=== PATIENT | female | born 1995 | race Caucasian/White ===

== ENCOUNTER 2020-12-15 05:17 | Emergency (ER) | payer OTHER, SELFPAY ==
--- NOTE | ~2020-12-15 | US_ITS ---
EXAMINATION: US OB <=14 wk fetus w TV DATE: 12/15/2020 INDICATION: Vaginal bleeding during first trimester TECHNIQUE: Real-time pelvic transabdominal and transvaginal ultrasound was performed. COMPARISON: None. FINDINGS: The uterus measures 8.1 x 4.9 x 6.1 cm. There is an intrauterine gestational sac. A 2.4 x 2 .3 x 1.1 cm hypoechoic area is seen adjacent to the gestational sac. A yolk sac is identified. The fe keith pole is not yet identified. The mean gestational sac diameter measures 11 mm , which correlates w ith an estimated gestational age of 5 weeks and 5 day(s) (+/-) 4 day(s). The right ovary measures 2.9 x 2.5 x 1.6 cm. The left ovary measures 2.5 x 2.5 x 2.8 cm. There is nor mal vascular flow in the ovaries. There is no free fluid in the pelvis. IMPRESSION: 1. Intrauterine gestational sac without visible pole, which could be due to early , wi th an estimated gestational age of 5 weeks and 5 day(s) (+/-) 4 day(s) and an estimated delivery date of 08/12/2021 based on mean sac diameter. 2. Subchronic hematoma. Reviewed, dictated and finalized at location A. ING PLANT OPERATOR IMPRESSION: 1. Intrauterine gestational sac without visible pole, which could be due to early , with an estimated gestational age of 5 weeks and 5 day(s) ( +/-) 4 day(s) and an estimated delivery date of 08/12/2021 based on mean sac bonnie meter. 2. Subchronic hematoma.
[2020-12-15 05:22] VITALS: BP 106/58; PULSE 60; RESP 16; TEMP 35.9; O2SAT 99
--- NOTE | 2020-12-15 05:23 | ED.FEMALEGU ---
HPI - Female Genitourinary General Chief complaint: SERVICING MANAGER <Monty Coronado MD - Last Filed: 12/20/20 15:15> Stated complaint: possible miscarriage <Monty Coronado MD - Last Filed: 12/20/20 15:15> Time Seen by Provider: 12/15/20 05:23 <Monty Coronado MD - Last Filed: 12/20/20 15:15> History of Present Illness HPI Narrative: Healthy 25 yo female presents to the ED for possible miscarriage. She reports that she is approximately 5 weeks . She has had spotting for a few days. This morning she woke up and the bleeding is heavier and associated with mild cramping. She is concerned that she may be having a miscarriage. She saw her OB and they confirmed . She has not had an ultrasound to confirm that it is intrauterine. <Monty Coronado MD - Last Filed: 12/20/20 15:15> Related Data Home medications: Home Medications Medication Instructions Recorded Confirmed No Home Medications 12/13/20 12/13/20 <Monty Coronado MD - Last Filed: 12/20/20 15:15> Allergies/Adverse reactions: Allergies Allergy/AdvReac Type Severity Reaction Status Date / Time No Known Allergies Allergy Verified 12/15/20 05:27 <Monty Coronado MD - Last Filed: 12/20/20 15:15> Review of Systems Review of Systems: All systems reviewed & are unremarkable except as noted in HPI and below <Monty Coronado MD - Last Filed: 12/20/20 15:15> Constitutional: Constitutional: Reports no additional constitutional complaints <Monty Coronado MD - Last Filed: 12/20/20 15:15> Cardiovascular: Cardiovascular: Denies chest pain <Monty Coronado MD - Last Filed: 12/20/20 15:15> Respiratory: Respiratory: Denies dyspnea <Monty Coronado MD - Last Filed: 12/20/20 15:15> Gastrointestinal: Gastrointestinal: Denies abdominal pain <Monty Coronado MD - Last Filed: 12/20/20 15:15> Genitourinary: Genitourinary: Reports as per HPI and Denies dysuria <Monty Coronado MD - Last Filed: 12/20/20 15:15> Neurologic: Denies dizziness and Denies weakness <Monty Coronado MD - Last Filed: 12/20/20 15:15> [facility] Surgical History Surgical History: Surgical History History of tonsillectomy [place] teeth removed <Monty Coronado MD - Last Filed: 12/20/20 15:15> Family History Family History: Family History Grandparent Hypertension Family history of elevated blood lipids Cerebrovascular accident Family history of coronary artery disease Diabetes mellitus Aneurysm Mother Hypertension Family history of elevated blood lipids Father Family history of pulmonary embolism Patient's father is <Monty Coronado MD - Last Filed: 12/20/20 15:15> Social History Social History: Social History Smoking status: Former smoker Tobacco type: e-cigarettes/vaping Second hand tobacco smoke exposure: No Alcohol intake: former Substance use: never <Monty Coronado MD - Last Filed: 12/20/20 15:15> Exam Const: General: healthy appearing, no acute distress and alert <Monty Coronado MD - Last Filed: 12/20/20 15:15> Orientation/consciousness: patient oriented x3 <Monty Coronado MD - Last Filed: 12/20/20 15:15> HENMT: Head: normal to inspection <Monty Coronado MD - Last Filed: 12/20/20 15:15> Neck: Neck: normal visual inspection and no lymphadenopathy <Monty Coronado MD - Last Filed: 12/20/20 15:15> Chest: Chest palpation & inspection: no tenderness <Monty Coronado MD - Last Filed: 12/20/20 15:15> Resp: Effort & Inspection: normal respiratory effort <Monty Coronado MD - Last Filed: 12/20/20 15:15> Auscultation: clear to auscultation bilaterally, no rales, no rhonchi and no wheezes <Monty Coronado MD - Last Filed: 0
[2020-12-15 05:41] LABS: Basophils Percent Auto 0.3 % (0.2-1.2); Eosinophils Absolute Auto 0.1 K/mm3 (0-0.3); Eosinophils Percent Auto 1.6 % (0-4.4); Hematocrit 35.3 % (37.0-47.0); Immature Granulocyte Absolute 0.01 K/mm3 (0.00-0.031); Immature Granulocyte Percent A 0.2 % (0-0.5); Lymphocytes Absolute Auto 2.16 K/mm3 (0.9-3.2); Lymphocytes Percent Auto 34.6 % (18.3-44.2); Mean Corpuscular Hemoglobin 32.3 pg (26-34); Mean Corpuscular Volume 95.1 fl (80-100); Mean Platelet Volume 9.2 fl (7.4-10.4); Monocytes Absolute Auto 0.5 K/mm3 (0.1-0.6); Monocytes Percent Auto 8.6 % (2.6-8.5); Neutrophils Absolute Auto 3.4 K/mm3 (1.3-6.7); Neutrophils Percent Auto 54.7 % (45.5-73.1); Platelet Count Result 228 k/mm3 (150-375); Red Blood Count 3.71 M/mm3 (4.2-5.4); Red Cell Distribution Width 11.9 % (11.5-14.5); White Blood Count 6.3 K/mm3 (4.5-10.0)
[2020-12-15 06:00] LABS: Anion Gap 6 mmol/L (8-16); Blood Urea Nitrogen 12 mg/dL (7-17); Calcium 8.9 mg/dL (8.4-10.2); Carbon Dioxide 24 mmol/L (22-30); Chloride 107 mmol/L (98-107); Estimated CRCL calculation 105 ml/min; Estimated Glomerular Filt Rate > 60; Glucose 91 mg/dL (65-105); Potassium 3.9 mmol/L (3.4-5.0); Sodium 137 mmol/L (137-145)
--- NOTE | 2020-12-15 07:46 | PC.NURSE ---
Assumed care of pt, pt mother at bedside, pt to U/S via stretcher.
[2020-12-15 08:31] VITALS: BP 112/53; PULSE 69; RESP 15; O2SAT 100
== END 2020-12-15 08:50 | disposition home or self-care (01) ==
PROVIDERS: Emergency Provider Emergency Medicine
DX: O20.0 Threatened abortion (principal); Z3A.01 Less than 8 weeks gestation of pregnancy; Z87.891 Personal history of nicotine dependence
CPT/HCPCS: 36415; 76801; 76817; 80048; 84702; 85025; 85461; 96372; 99284

== ENCOUNTER 2020-12-17 14:02 | Outpatient (CLI) | payer OTHER, SELFPAY | END 2020-12-17 14:03 | disposition home or self-care (01) | PROVIDERS: Visit Provider General Practice | DX: O20.0 Threatened abortion (principal); Z3A.00 Weeks of gestation of pregnancy not specified | CPT/HCPCS: 36415; 84702 ==

== ENCOUNTER 2020-12-22 09:58 | Outpatient (CLI) | payer OTHER, SELFPAY ==
--- NOTE | ~2020-12-22 | US_ITS ---
EXAMINATION: US OB <= 14 weeks fetus EXAM DATE: 12/22/2020 09:58 INDICATION: O36.80X0 - with inconclusive viability, not applicable or unspecified 1s t trimester. TECHNIQUE: Pelvic obstetrical transabdominal sonogram was performed by a technologist. There are mu ltiple grayscale and Doppler images available for interpretation. Comparison is made to prior examina tion from 12/15/2020. FINDINGS: Uterus measures 7.7 x 4.2 x 5.6 cm. There is intrauterine gestation sac. pole with heart rate confirmed at 117 beats per minute. The 4.5 mm crown-rump length corresponds to estimated gestational age by ultrasound of 6 weeks 1 day with an EDC by ultrasound of 08/08/2021. Yolk sac is i dentified. There is no sonographic evidence of subchorionic hemorrhage. The ovaries are morpholog ically normal and with Doppler flow confirmed. IMPRESSION: Confirmation early live intrauterine , age by ultrasound 6 weeks 1 day. Reviewed, dictated and finalized at location A.
== END 2020-12-22 09:59 | disposition home or self-care (01) ==
LOC: ANHIMG 09:58
PROVIDERS: Visit Provider Obstetrics & Gynecology
DX: O36.80X0 Pregnancy with inconclusive fetal viability, not applicable or unspecified (principal); Z3A.01 Less than 8 weeks gestation of pregnancy
CPT/HCPCS: 36415; 76801; 84702

== ENCOUNTER 2021-07-26 09:47 | Outpatient (RCR) | payer OTHER, SELFPAY ==
--- NOTE | ~2021-07-26 | US_ITS ---
EXAMINATION: US OB BPP wo non-stress DATE: 07/26/2021 10:42 INDICATION: Decreased movement during third trimester TECHNIQUE: Real-time pelvic ultrasound was performed. The interpreting radiologist was not present fo r the study. COMPARISON: None. FINDINGS: There is a single living fetus in breech presentation. The placenta is fundal. heart rate is 1 55 beats per minute (bpm). Amniotic fluid volume is subjectively normal. Biophysical profile performed by the technologist: breathing (30 sec sustained breathing in 30 minutes): 2 out of 2 movement (3 gross body movements in 30 minutes): 2 out of 2 tone (one episode of pulwroz-sdgrgrafc-bwchboh limb movement): 2 out of 2 Amniotic fluid pocket (2 cm): 2 out of 2 Total score: 8 out of 8 IMPRESSION: 1. Single living fetus in breech presentation with heart rate of 155 bpm. 2. Biophysical profile 8 out of 8. Reviewed, dictated and finalized at location A.
[2021-07-26 10:24] VITALS: BP 108/70; PULSE 78
== END 2021-10-19 14:10 | disposition home or self-care (01) ==
LOC: ANHOBOP 09:47
PROVIDERS: Visit Provider Obstetrics & Gynecology
DX: O36.8130 Decreased fetal movements, third trimester, not applicable or unspecified (principal); Z3A.37 37 weeks gestation of pregnancy
CPT/HCPCS: 59025; 76819

== ENCOUNTER 2021-08-06 18:56 | Inpatient (IN) | payer OTHER, SELFPAY ==
[2021-08-06] VITALS (37 sets, daily range): BP systolic 91–130; BP diastolic 45–98; PULSE 54–120; RESP 17–20; TEMP 36.6–37.2; O2SAT 93–100; BMI 27.2
--- NOTE | 2021-08-06 19:58 | P.PNAN_ITS ---
Anes - Initial Pre Proc Eval Procedure: Operation Date: 08/11/21 10:30 Proposed Procedures p Section - Roe Bell MD Date/Time: 08/06/21 19:58 Surgeon: Roe Bell MD Pre Op Diagnosis: Leaking Fluid Patient Data Age: 25 Gender: F Height: Weight: Last Vital Signs Pulse 86 08/06/21 19:31 BP 128/74 08/06/21 19:31 Allergies Allergy/AdvReac Type Severity Reaction Status Date / Time No Known Allergies Allergy Verified 08/02/21 15:33 Home Medications Medication Instructions Recorded Confirmed Type prenat.vits,sylvia,utn-kecc-awrnc 1 tablet PO DAILY 12/28/20 07/26/21 History ferrous sulfate 325 mg (65 mg 325 mg PO DAILY 06/13/21 07/26/21 History iron) tablet lactobacillus combination no.4 3 3,000 mmu cells PO DAILY 06/13/21 07/26/21 History billion cell capsule Patient hx anesthesia problems: none Family hx anesthesia problems: none Results Review: All pre-operative results and documents have been reviewed as part of the pre-operative evaluation. [facility] Surgical History Surgical History History of tonsillectomy [place] teeth removed Family History Family History Grandparent Hypertension Family history of elevated blood lipids Cerebrovascular accident Family history of coronary artery disease Diabetes mellitus Aneurysm Mother Hypertension Family history of elevated blood lipids Father Family history of pulmonary embolism Patient's father is Grandparent Cerebrovascular accident Hypertension Diabetes mellitus Mother Hypertension Grandparent Diabetes mellitus Cerebrovascular accident Mother Hypertension Other Family history of malignant neoplasm of breast Social History Social History Smoking status: Never smoker Tobacco type: e-cigarettes/vaping Second hand tobacco smoke exposure: No Alcohol intake: former Substance use: never Anes - Eval Final PreProcedure Day of Procedure 08/06/21 19:58 Patient weight: overweight Heart: regular rate and rhythm Lungs: clear to auscultation and normal air movement Airway: Mallampati scale Neurological: alert and oriented Last oral intake: >/= 8 hours ASA classification: II Emergent: no Anesthetic plan: proceed Anesthesia type and monitoring: regional spinal and standard monitoring Results Review: All pre-operative results and documents have been reviewed as part of the pre-operative evaluation. Informed Consent: The patient's anesthetic plan and its attendant risks and benefits were discussed with the patient/family/POA. Questions were solicited and answers provided to the satisfaction of the patient/family/POA.
[2021-08-06] MEDS: LACTATED RINGERS 1,000 ML 999 ML IV CONT ×2 (20:02→20:26)
[2021-08-06 20:08] LABS: Basophils Percent Auto 0.2 % (0.2-1.2); Eosinophils Absolute Auto 0.1 K/mm3 (0-0.3); Eosinophils Percent Auto 0.6 % (0-4.4); Hematocrit 31.1 % (37.0-47.0); Hemoglobin 10.9 g/dL (12.0-15.0); Immature Granulocyte Absolute 0.04 K/mm3 (0.00-0.031); Immature Granulocyte Percent A 0.5 % (0-0.5); Lymphocytes Absolute Auto 1.34 K/mm3 (0.9-3.2); Lymphocytes Percent Auto 16.1 % (18.3-44.2); Mean Corpuscular Hemoglobin 33.3 pg (26-34); Mean Corpuscular Volume 95.1 fl (80-100); Mean Platelet Volume 10.4 fl (7.4-10.4); Monocytes Absolute Auto 0.7 K/mm3 (0.1-0.6); Monocytes Percent Auto 7.9 % (2.6-8.5); Neutrophils Absolute Auto 6.2 K/mm3 (1.3-6.7); Neutrophils Percent Auto 74.7 % (45.5-73.1); Platelet Count Result 155 k/mm3 (150-375); Red Blood Count 3.27 M/mm3 (4.2-5.4); Red Cell Distribution Width 11.9 % (11.5-14.5); White Blood Count 8.3 K/mm3 (4.5-10.0)
--- NOTE | 2021-08-06 20:38 | PM.IMHP ---
H&P: HPI History of Present Illness Date/Time: 08/06/21 20:38 Patient is a 25yoo currently 38w4d gestation with TERESA 08/16/21. LMP 11/01/20. Patient is dated by US on 12/22/20 at 6w gestation. Fetus in known breech presentation. Patient reports leakage of fluid this evening shortly after 6:00 p.m. Clear fluid noted. Denies any vaginal bleeding or contractions. Reports good movement. Upon arrival to L&D, patient was noted to be grossly ruptured. She was previously scheduled for a section later this week. Chief Complaint: IUP at 38w4d gestation Breech presentation PROM Review of Systems Review of Systems: All systems reviewed & are unremarkable except as noted in HPI and below Constitutional: Constitutional: Reports as per HPI, Reports no additional constitutional complaints, Denies chills, Denies fever(s), Denies headache(s) and Denies night sweats Eyes: Eyes: Reports as per HPI and Reports no additional eye complaints ENT: Reports system reviewed and no additional complaints, except as documented, Reports as per HPI, Reports Normal hearing present and Denies headache(s) Cardiovascular: Cardiovascular: Reports as per HPI, Reports no additional cardiovascular complaints, Denies chest pain and Denies dyspnea Respiratory: Respiratory: Reports as per HPI, Reports no additional respiratory complaints, Denies cough and Denies dyspnea Gastrointestinal: Gastrointestinal: Reports as per HPI, Reports no additional gastrointestinal complaints, Denies abdominal pain, Denies change in bowel habits, Denies change in stool character, Denies nausea and Denies vomiting Genitourinary: Genitourinary: Reports no additional female genitourinary complaints, Reports as per HPI, Denies abnormal vaginal bleeding, Denies genital lesions, Denies hot flashes, Denies dyspareunia, Denies pelvic pain, Denies sexual dysfunction, Denies urinary incontinence, Denies vaginal discharge, Denies vaginal dryness and Denies vaginal odor Musculoskeletal: Musculoskeletal: Reports no additional musculoskeletal complaints and Reports as per HPI Integumentary/Breasts: Skin/Breast: Reports system reviewed and no additional complaints, except as docu, Reports as per HPI, Denies breast pain and Denies nipple discharge Neurologic: Reports system reviewed and no additional complaints, except as documented, Reports as per HPI, Reports Normal hearing present and Denies headache(s) Psychiatric: Psychiatric: Reports no additional psychiatric complaints, Reports as per HPI, Denies anxiety and Denies depression Endocrine: Endocrine: Reports no additional endocrine complaints and Reports as per HPI Hematologic/Lymphatic: Hematologic/Lymphatic: Reports no additional hematologic/lymphatic complaints and Reports as per HPI Allergic/Immunologic: Allergic/Immunologic: Reports no additional allergic/immunologic complaints and Reports as per HPI [facility] Surgical History Surgical History History of tonsillectomy [place] teeth removed Family History Family History Grandparent Hypertension Family history of elevated blood lipids Cerebrovascular accident Family history of coronary artery disease Diabetes mellitus Aneurysm Mother Hypertension Family history of elevated blood lipids Father Family history of pulmonary embolism Patient's father is Grandparent Cerebrovascular accident Hypertension Diabetes mellitus Mother Hypertension Grandparent Diabetes mellitus Cerebrovascular accident Mother Hypertension Other Family history of malignant neoplasm of breast Social History Social History (Reviewed 08/02/21 @ 15:34 by Riya Bowie [facility]) Smoking status: Never smoker Tobacco type: e-cigarettes/vaping Second hand tobacco smoke exposure: No Alcohol intake: former Substance use: never Meds Home Medications and Mayank
--- NOTE | 2021-08-06 20:48 | WPDHPUPDATE1 ---
History and Physical Update Update Date/Time: 08/06/21 20:48 History and Physical has been reviewed, including an updated exam of the patient. There are NO changes in the patient's condition. Risks, benefits, and alternatives have been discussed and questions answered. Patient agrees to proceed with procedure.
[2021-08-06] MEDS: ceFAZolin 2 GM/D5W 50 ML 2 GM/50 ML BAG IVPB (20:55)
--- NOTE | 2021-08-06 21:54 | W.PM.PROC2 ---
Procedure Note - Detailed Date of Procedure 08/06/21 Pre-op Diagnosis IUP at 38w4d gestation Breech presentation PROM Post-op Diagnosis same Procedure Performed Low transverse section via Pfannenstiel Surgeon Vernell Hernandez MD Senior Design Engineering Specialist Umm Mishra Anesthesia spinal Findings Live male in julio breech presentation weighing 7 lbs. 2 oz, apgars 9/9, clear amniotic fluid; normal appearing uterus and ovaries, left fallopian tube dilated approx. 3-4cm near isthmic region and a bit firm (possible broad ligament fibroid), normal appearing right fallopian tube Description of Procedure The patient was taken to the operating room, where she self-transferred to the operating room table. Spinal anesthesia was administered. The patient was placed in dorsal supine position with a leftward tilt. She was prepped and draped in the usual sterile fashion. Spinal anesthesia was tested and found to be adequate. A Pfannenstiel skin incision was made with a scalpel and carried through to underlying layer of fascia with the Bovie. The fascia was incised in the midline and the incision was extended laterally with the use of forceps and Ag scissors. The inferior aspect of the fascial incision was grasped with Valerai clamps, elevated, and the underlying rectus muscle were dissected off with Ag scissors. Attention was then turned to the superior aspect of the fascial incision, which in a similar manner, was grasped with Valeria clamps, elevated, and the underlying rectus muscles were also dissected off with Ag scissors. The rectus muscles were in the midline and the peritoneal cavity was entered sharply. This incision was extended superiorly and inferiorly with good visualization of the bladder and care was taken to avoid blood vessels. A bladder blade was inserted. The vesicouterine peritoneum was identified and incised sharply with Metzenbaum scissors. This incision was extended laterally with Metzenbaum scissors and a bladder flap was created digitally. The bladder blade was replaced. A low-transverse uterine incision was made with a scalpel. This incision was extended laterally with bandage scissors. Clear amniotic fluid was noted. The 's buttocks were grasped and guided to the level of the uterine incision. The infant's buttocks were delivered easily without difficulty with gentle fundal pressure. The infant was visualized both voiding and passing meconium. was found in julio breech presentation. The was rotated to the left and the left lower extremity was flexed and delivered. The infant was then rotated to the right and the right lower extremity was also flexed and delivered. The was wrapped with a sterile blue towel and grasped at the level of the iliac crests and guided through incision to level of scapulae. The infant was rotated to the right and the right arm was flexed and delivered. Similarly, the was rotated to the left and the left arm was also flexed and delivered. The 's head was flexed and easily delivered through incision atraumatically and without difficulty. The infant was crying spontaneously. Nose and mouth were suctioned with bulb suction. The cord was clamped and cut and the infant was handed off to awaiting nursing staff. A segment of cord was collected for cord gases. Cord blood was also collected. The placenta was then delivered manually with gentle uterine massage. Uterus was exteriorized and cleared of all clots and debris. The uterine incision was reapproximated with 0 Vicryl in a running, locked fashion. A second imbricating layer using 0 Monocryl performed. Excellent hemostasis was noted. On inspection, the uterus, ovaries, and right fallopian tube appeared to be normal. The left fallopian tube appeared to be dilated and firm with possible association with a broad ligament fibroid. The uterus was replaced into the abdominal cavity. A small area of bleeding just inferior to the right side of inc
--- NOTE | 2021-08-06 22:15 | LDADM ---
This patient, Dinah Nair, was admitted to Labor/Delivery/Recovery 120 on 08/06/21 at 18:56. Plans for labor, pain management and were discussed with patient. Patient/family oriented to hospital policies and general routines including ID bracelet, bed and alarms, visiting hours, pain management, procedures, bathroom and other care routines, personal items, smoking policy, room service/diet and guest tray routines, security routines, and visiting hours. Patient/Family are encouraged to report perceived risks to care and to ask questions if they do not understand what they are told or what they should do. See OBIX for further documentation.
[2021-08-06] MEDS: OXYTOCIN 30 UNITS/NS 500 ML 30 UNITS/500 ML BAG 125 UNITS IV CONT (22:49)
--- NOTE | 2021-08-06 22:58 | PM.OBPRVD ---
OB - Delivery Note Procedure Delivery date: 08/06/21 Procedure: Procedures Operation Date: 08/11/21 10:30 <No data on this case meets the specified criteria> events: Premature Rupture of Membrane Route of delivery: Quantitative Blood Loss (ml): 485 Anesthesia type: Spinal Disposition: PACU Complications: No immediate complications [place] Baby Date of : 08/06/21 Time of : 21:17 Weeks of gestation at delivery: 38 (38.4) gender: Male Weight (pounds): 7 Weight (ounces): 2 presentation: julio breech Placenta delivery description: Manual Removal cord vessel description: 3 Vessels score one minute: 9 score five minutes: 9
[2021-08-07] VITALS (19 sets, daily range): BP systolic 98–118; BP diastolic 52–86; PULSE 51–106; RESP 16–20; TEMP 36.6–37.2; O2SAT 96–99
[2021-08-07] MEDS: ONDANSETRON INJ 4 MG/2 ML VIAL IV PUSH (00:32)
--- NOTE | 2021-08-07 00:36 | OBPPTRN ---
Patient transferred to post room #288 via stretcher. Support person present. Oriented to unit, room, information board, rooming in, admission packet and security measures. Patient verbalizes understanding.
[2021-08-07] MEDS: DEXTROSE 5%/0.45% SOD CHL 1,000 ML 125 ML IV CONT (03:17)
[2021-08-07 05:28] LABS: Basophils Absolute Auto 0.1 K/mm3 (0.0-0.1); Basophils Percent Auto 0.3 % (0.2-1.2); Eosinophils Percent Auto 0.2 % (0-4.4); Hematocrit 31.1 % (37.0-47.0); Hemoglobin 10.6 g/dL (12.0-15.0); Immature Granulocyte Absolute 0.08 K/mm3 (0.00-0.031); Immature Granulocyte Percent A 0.5 % (0-0.5); Lymphocytes Absolute Auto 1.45 K/mm3 (0.9-3.2); Lymphocytes Percent Auto 8.8 % (18.3-44.2); Mean Corpuscular HGB Conc 34.1 g/dl (32-36); Mean Corpuscular Hemoglobin 33.7 pg (26-34); Mean Corpuscular Volume 98.7 fl (80-100); Monocytes Percent Auto 6.1 % (2.6-8.5); Neutrophils Absolute Auto 13.9 K/mm3 (1.3-6.7); Neutrophils Percent Auto 84.1 % (45.5-73.1); Platelet Count Result 132 k/mm3 (150-375); Red Blood Count 3.15 M/mm3 (4.2-5.4); Red Cell Distribution Width 11.9 % (11.5-14.5); White Blood Count 16.5 K/mm3 (4.5-10.0)
[2021-08-07] MEDS: SIMETHICONE 80 MG TAB.CHEW PO ×3 (08:53→17:01)
[2021-08-07] MEDS: DOCUSATE SODIUM 100 MG CAPSULE PO ×2 (08:53→17:01)
[2021-08-07] MEDS: MULTIVIT/MIN/PREN/FOL AC/IRON TABLET 1 TAB PO (08:53)
[2021-08-07] MEDS: KETOROLAC 30 MG/ML VIAL (*BKC) IV PUSH (08:58)
[2021-08-07] MEDS: HYDROcodone/acetaminophen (*CRX) 5-325 MG TABLET 1 TAB PO ×2 (11:40→17:02)
[2021-08-07 11:41] LABS: Rapid Plasma Reagin Non-Reactive (NonReactive)
--- NOTE | 2021-08-07 11:53 | PM.OBPNVD ---
OB - PN: Subj Subjective Date/time seen: 08/07/21 11:53 Patient comments: no complaints, pain well controlled, incisional pain, tolerating diet and other (Lochia similar to menses); no flatus present [place] baby status: doing well OB - PN: Obj Data Labs CBC & Chem 7: 08/07/21 03:31 Labs: Laboratory Results - last 24 hr 08/06/21 08/06/21 08/06/21 19:57 19:57 19:57 WBC 8.3 RBC 3.27 L Hgb 10.9 L Hct 31.1 L MCV 95.1 MCH 33.3 MCHC 35.0 RDW 11.9 Plt Count 155 MPV 10.4 Immature Gran % (Auto) 0.5 Neut % (Auto) 74.7 H Lymph % (Auto) 16.1 L [place] % (Auto) 7.9 Eos % (Auto) 0.6 Baso % (Auto) 0.2 Lymph # (Auto) 1.34 [place] # (Auto) 0.7 H Eos # (Auto) 0.1 Baso # (Auto) 0.0 Abs Immat Gran (auto) 0.04 H Absolute Neuts (auto) 6.2 Absolute Nucleated RBC 0.0 Nucleated RBC % 0.0 RPR Non-reactive Blood Type A Positive Antibody Screen Negative 08/07/21 03:31 WBC 16.5 H RBC 3.15 L Hgb 10.6 L Hct 31.1 L MCV 98.7 MCH 33.7 MCHC 34.1 RDW 11.9 Plt Count 132 L MPV 11.0 H Immature Gran % (Auto) 0.5 Neut % (Auto) 84.1 H Lymph % (Auto) 8.8 L [place] % (Auto) 6.1 Eos % (Auto) 0.2 Baso % (Auto) 0.3 Lymph # (Auto) 1.45 [place] # (Auto) 1.0 H Eos # (Auto) 0.0 Baso # (Auto) 0.1 Abs Immat Gran (auto) 0.08 H Absolute Neuts (auto) 13.9 H Absolute Nucleated RBC 0.0 Nucleated RBC % 0.0 RPR Blood Type Antibody Screen OB - PN A/P Plan day: 1 (s/p C section, doing well) Plan: routine care Comments: We agreed to hold off on circumcision due to baby being very sleepy already and hasn't nursed in about 4 hours. Time Spent With Patient Time: Total time spent is greater than 50% in coordination of care (as documented) at patient's floor/unit and/or counseling patient: Time with patient: less than 15 minutes Exam Const: General: no acute distress Resp: Auscultation: clear to auscultation bilaterally Cardio: Rate: regular rate Rhythm: regular rhythm GI: Inspection: non-distended, incision (Intact without erythema, drainage, or induration) and other (Fundus firm and nontender at umbilicus) GI Palp: Yes abdominal tenderness (appropriate ) and Yes Soft to palpation Extrem: General: no edema
--- NOTE | 2021-08-07 12:30 | PC.NURSE ---
Mother called out for assist with feeding. Infant is able to freely thrust tongue past gum ridge and flange both lips. Skin is intact on both nipples, no redness and bruising noted. Reviewed feeding cues, frequencies, duration of feedings, feeding elimination flow sheet, and signs of adequate intake. Demonstrated stimulation techniques to wake for feeding. Assisted with infant to breast. Reviewed positioning/alignment in cross cradle, holding breast in ?U? hold and guided asymmetrical latch on. Reviewed rational for each. able to latch correctly within a few attempts. Infant nursed eagerly with steady draws and occasional/frequent swallowing noted, some pausing noted. Reviewed signs of a correct latch, effective nursing and suck swallow ratio. Suggested mother stimulate while feeding to increase stimulation for milk supply, for increased intake and to assist with maintaining deep latch. would slip to shallow latch causing tenderness. Demonstrated how to adjust latch more deeply while feeding if needed. Mother reports she can feel the difference in latch with no tenderness. Nipple care reviewed of lanolin after feedings, warm compresses as needed. Instructed mother to call out for RN assistance if she is unable to latch for feeding or she has discomfort with nursing. Instructed feeding should be initiated three hours from start of last feeding or if feeding cues are noted before. Mother voiced understanding of information shared.
[2021-08-07] MEDS: TETANUS,DIPHTHERIA,AC PERTUSSIS ADULT (0.5 ML) BOOSTRIX IM (12:38)
--- NOTE | 2021-08-07 14:32 | WPDANLDPN2 ---
Anes-Prog Note L&D Date/Time: 08/07/21 14:32 Comfortable throughout: section Neuraxial method: spinal Epidural/Spinal procedure site: clean & non-tender Neuro status: Neuro function grossly intact. Cardiovascular status: normal Respiratory status: normal Airway patency: baseline Mental status: baseline Post-Op hydration status: normal Vital Signs: Last Vital Signs Temp 36.6 C 08/07/21 11:59 Pulse 81 08/07/21 12:00 Resp 16 08/07/21 12:00 BP 108/64 08/07/21 11:59 Pulse Ox 99 08/07/21 12:00 Pain score (VAS): 3 I/O: Intake & Output 08/06/21 08/07/21 08/07/21 23:59 07:59 15:59 Intake Total 2500 500 800 Output Total 221 527 1967 Balance 5260 -[id number] Post-procedural complaints: none Patient feedback: Patient satisfied with anesthetic care.
--- NOTE | 2021-08-07 14:33 | WPDANLDNPN2 ---
Anes-Prog Note L&D-Neuraxial Date/Time: 08/07/21 14:33 Neuraxial medications: intrathecal PF morphine Opiod-related complaints: none Patient feedback: Patient satisfied with post-operative pain management.
[2021-08-07] MEDS: IBUPROFEN 600 MG TABLET PO (17:01)
[2021-08-07] MEDS: HYDROcodone/acetaminophen (*CRX) 10-325 MG TABLET 1 TAB PO (22:35)
[2021-08-08] MEDS: HYDROcodone/acetaminophen (*CRX) 10-325 MG TABLET 1 TAB PO ×5 (04:20→21:33)
[2021-08-08] MEDS: IBUPROFEN 600 MG TABLET PO ×3 (04:20→21:32)
[2021-08-08 08:15] VITALS: BP 110/57; PULSE 80; RESP 18; TEMP 37.2; O2SAT 99
[2021-08-08] MEDS: MULTIVIT/MIN/PREN/FOL AC/IRON TABLET 1 TAB PO (08:58)
[2021-08-08] MEDS: DOCUSATE SODIUM 100 MG CAPSULE PO ×2 (08:58→17:34)
--- NOTE | 2021-08-08 11:00 | PC.NURSE ---
Mother called out for assist with feeding, reporting has been sleepy after circumcision. Assured parents this is normal and should resolve within a few feedings. Mother reports tenderness to nipples with feeding. Skin is intact on both nipples, with redness bilaterally. Nipple care reviewed of lanolin after feedings, warm compresses as needed. Discussed a deeper latch. Reviewed infant feeding cues, frequencies, duration of feedings, feeding elimination flow sheet, and signs of adequate intake. Demonstrated stimulation techniques to wake for feeding. Assisted with to breast. Reviewed positioning/alignment in football cradle, holding breast in ?C? hold and guided asymmetrical latch on. Reviewed rational for each. able to latch correctly within a few attempts. Infant nursed eagerly with steady draws and occasional/frequent swallowing noted, some pausing noted. Reviewed signs of a correct latch, effective nursing and suck swallow ratio. Suggested mother stimulate while feeding to increase stimulation for milk supply, for increased intake and to assist with maintaining deep latch. Infant would slip to shallow latch causing tenderness. Demonstrated how to adjust latch more deeply while feeding if needed. Mother reports she can feel the difference in latch with no tenderness. Stressed the importance of adjusting latch and holding breast during the entire feeding. Instructed mother to call out for RN assistance if she is unable to latch for feeding or she has discomfort with nursing. Instructed feeding should be initiated three hours from start of last feeding or if feeding cues are noted before. Mother voiced understanding of information shared.
--- NOTE | 2021-08-08 12:46 | PM.OBPNVD ---
OB - PN: Subj Subjective Date/time seen: 08/08/21 0820 She states adequate pain control. Decrease lochia. She has ambulated without problems. Tolerating regular food. No flatus. No leg pain. Nursing well. OB - PN: Obj Data Labs CBC & Chem 7: 08/07/21 03:31 OB - PN A/P Assessment and Plan (1) delivery delivered: Code(s): O82 - Encounter for delivery without indication Status: Acute Assessment and Plan: POD2 doing well Continue routine post op care. Time Spent With Patient Time: Total time spent is greater than 50% in coordination of care (as documented) at patient's floor/unit and/or counseling patient: Exam Const: General: comfortable and no acute distress Resp: Effort & Inspection: normal respiratory effort GI: Other: fundus below umbilicus appropriate tenderness incision clean dry intact Skin: General skin exam: normal color Extrem: General: normal to inspection Other: nontender Psych: Mental Status: mental status grossly normal Affect: normal affect
[2021-08-08] MEDS: SIMETHICONE 80 MG TAB.CHEW PO (14:27)
[2021-08-08 18:30] VITALS: BP 106/61; PULSE 77; RESP 18; TEMP 37.1
[2021-08-09] MEDS: HYDROcodone/acetaminophen (*CRX) 10-325 MG TABLET 1 TAB PO (03:23)
[2021-08-09] MEDS: IBUPROFEN 600 MG TABLET PO ×2 (03:24→09:03)
[2021-08-09 08:00] VITALS: BP 113/71; PULSE 73; RESP 16; TEMP 36.9; O2SAT 99
[2021-08-09] MEDS: DOCUSATE SODIUM 100 MG CAPSULE PO (09:02)
[2021-08-09] MEDS: MULTIVIT/MIN/PREN/FOL AC/IRON TABLET 1 TAB PO (09:02)
[2021-08-09] MEDS: HYDROcodone/acetaminophen (*CRX) 5-325 MG TABLET 1 TAB PO (09:05)
--- NOTE | 2021-08-09 09:08 | PM.OBDSVD ---
DS: Admitting Diagnosis Discharge Date August 09, 2021. Admitting Diagnosis Premature rupture of membranes, persistent breech presentation. DS: Discharge Diagnosis Discharge Diagnosis (1) Breech presentation of fetus: Code(s): O32.1XX0 - Maternal care for breech presentation, not applicable or unspecified Status: Acute (2) PROM (premature rupture of membranes): Code(s): O42.90 - Premature rupture of membranes, unspecified as to length of time between rupture and onset of labor, unspecified weeks of gestation Status: Acute (3) delivery delivered: Code(s): O82 - Encounter for delivery without indication Status: Acute OB - DS: Summary Hospital Course Hospital Course: Patient admitted on August 06 for premature rupture of membranes. She was known breech position. She was confirmed ruptured of membranes. And she underwent an uncomplicated primary section. Postop day 1. She was doing well started ambulating had adequate pain control and lochia was decreased. On postop day 2 she had improved ambulation. She did have some flatus. Was tolerating regular diet. On postop day 3 patient was doing well ambulating well adequate pain control tolerating regular diet had some flatus and was discharged home. OB Procedures : Ultrasound OB Procedures Intrapartum: ( Low-transverse) OB Procedures: : None Peripartum Data Infant Delivery Method: Section Procedures: Procedures Operation Date: 08/06/21 20:50 Actual Procedure Side Surgeon p Section Vernell Hernandez MD complications: none Status at Discharge Functional status at discharge: independent ambulation Time Spent with Patient Time attestation: Total time spent providing and/or coordinating discharge services: Exam Const: General: cooperative Orientation/consciousness: oriented to person, oriented to place and oriented to time HENMT: General nose exam: Normal external nose present Eyes: General: appearance normal, both eyes and all related structures Resp: Effort & Inspection: normal respiratory effort GI: Inspection: normal to inspection : Other: uterus fundus firm -4 umbilicus appropriate tenderness. Incision intact clean and dry Skin: General skin exam: normal color Neuro: General: oriented to person, oriented to place and oriented to time Extrem: General: normal to inspection and no calf tenderness Psych: Appearance: grossly normal Mental Status: mental status grossly normal Discharge Plan Discharge Attending physician on discharge: Roe Bell Consulting providers: Fatou Carrasco Discharging Clinician: Roe Bell Anticipated Discharge Date/Time: 08/09/21 09:04 Patient Disposition: Home, Self-Care Activity: may shower, may drive after 2 weeks and pelvic rest Diet: regular Wound Care Instructions: incision open to air Discharge Instructions: Pelvic rest for 4-6 weeks. May take over the counter Ibuprofen or Tylenol for pain. Call if saturating more than a pad an hour, leg redness, pain and swelling, temperature>100.4.Drainage from incision. Redness at incision. No strenuous activity. Patient Instructions: Antibiotic Form Stand Alone Forms: General Discharge Information Follow-up/Referrals: Roe Bell MD [Physician] - 2 Weeks (Call for appointment) Discharge Medications: New hydrocodone-acetaminophen 5-325 mg Tablet 1 tablet PO Q3H PRN (Reason: Moderate Pain (4-6)) Qty: 25 RF: 0 Continued prenat.vits,sylvia,[id number] Tablet 1 tablet PO DAILY RF: 0 ferrous sulfate 325 mg (65 mg iron) tablet 325 mg PO DAILY RF: 0 Probiotic 3 billion cell capsule 3,000 mmu cells PO DAILY RF: 0 Date of admission: 08/06/21 18:56 Primary Care Provider: PHYSICIAN,PAEDIATRIC PHYSIOTHERAPIST Admitting Provider: Roe Bell Attending physician on admission: Roe Bell Co
--- NOTE | 2021-08-09 09:12 | PM.OBPNVD ---
OB - PN: Subj Subjective Date/time seen: 08/09/21 09:12 she states she is doing well. Has adequate pain control. Has ambulated. Has had some flatus. Tolerating regular diet. Nursing well. OB - PN: Obj Data Labs CBC & Chem 7: 08/07/21 03:31 OB - PN A/P Assessment and Plan (1) delivery delivered: Code(s): O82 - Encounter for delivery without indication Status: Acute Assessment and Plan: Postop day 3. Patient doing well. Will discharge home. Discharge precautions discussed. Time Spent With Patient Time: Total time spent is greater than 50% in coordination of care (as documented) at patient's floor/unit and/or counseling patient: Exam Const: General: comfortable and no acute distress Resp: Effort & Inspection: normal respiratory effort GI: Other: Incision clean dry and intact no drainage fundus minus formed alike is Extrem: General: normal to inspection Other: nontender no calf tenderness no swelling. Psych: Mental Status: mental status grossly normal Affect: normal affect
--- NOTE | 2021-08-09 11:12 | PC.NURSE ---
Patient viewed the discharge video Mother & Baby Care, The First Two Weeks . Patient was given the opportunity and encouraged to ask questions. Patient verbalized understanding of information shared and has been given the mother/baby guide for home reference.
[2021-08-10 09:52] VITALS: BP 115/72; PULSE 83; RESP 20; TEMP 37.2; O2SAT 100
== END 2021-08-09 11:58 | disposition home or self-care (01) | DRG 788 ==
LOC: ANHLDR 20:15 → ANHOB2 08-07 00:57
PROVIDERS: Admitting Provider Student in an Organized Health Care Education/Training Program; Visit Provider Obstetrics & Gynecology
DX: O32.1XX0 Maternal care for breech presentation, not applicable or unspecified (principal); O42.92 Full-term premature rupture of membranes, unspecified as to length of time between rupture and onset of labor; Z3A.38 38 weeks gestation of pregnancy; Z37.0 Single live birth; N83.9 Noninflammatory disorder of ovary, fallopian tube and broad ligament, unspecified
CPT/HCPCS: 36415; 84112; 85025; 86592; 86850; 86900; 86901; 90715; A9270; J0690; J1885; J2274; J2405; J2590; J7120

== ENCOUNTER 2021-08-14 10:00 | Outpatient (RCR) | payer OTHER, SELFPAY ==
--- NOTE | 2021-08-14 10:53 | PC.NURSE ---
IN 1000 OUT 1100 HISTORY: Pt. delivered at [facility] at 38 weeks. had no complications after delivery. Mother had no complications after delivery. Mother and discharged successfully Infant is now 09 days old. appears to be well cared for. last seen/will be seen by ICP at 1 week. Mother reports: Currently at 6 wets per day and 2-3 yellow seedy stools per day. weight:7#2 Discharge weight: 6#8 Last Weight: 6#14 Once discharged infant began having difficulties with latching. Mother had pain with entire feeding increasing in discomfort and could not put infant to breast. She began pumping and bottle feeding. is feeding 2 oz mostly EBM every 2-3 hours during the day and every 3-4 at night. Mother is pumping after feeding infant without issue. Mother wishes: To return infant to breast without discomfort. OBSERVATION: Pre feeding weight: Post feeding weight: 3360 7.6 Tongue is able to move tongue freely past gum ridge, both lips flange easily. Mother has everted nipples healed cracks noted, slight redness and scabbing on both nipples. Mother is engorged, advised to self express to soften before attempting latch. Demonstrated self expression. Discussed if breasts are firm is unable to draw areola in deeply for correct latch and is only nursing on nipple. Observed mother putting to breast in cradle positioning with infant latching to nipple only. Mother is grimacing in discomfort. Reviewed positioning/alignment in cross cradle, holding breast in U hold and guided asymmetrical latch on. Discussed rational for each. was able to latch correctly within a few attempts. Infant nursed eagerly, with steady draws and frequent swallowing noted. Reviewed signs of a correct latch, effective nursing and suck swallow ratio. would pull back while feeding, slipping to shallow latch causing mother discomfort. Demonstrated how to adjust latch more deeply while feeding. Suggested mother give slight resistance and bring infant to breast when he pulls back. Advised to stimulate while feeding to keep nursing effectively/consistent and to assist with maintaining latch. Mother was able to independently switch infant to other breast without assist. Mother will put to breast on demand or by three hours from last feeding. PLAN: Mother will follow above feeding plan and assist to maintain deep latch. Mother will call with further questions or concerns.
== END 2021-10-19 12:38 | disposition home or self-care (01) ==
LOC: ANHOBOP 10:00
PROVIDERS: Visit Provider Pediatrics
DX: Z39.1 Encounter for care and examination of lactating mother (principal)
CPT/HCPCS: 99212; G0463

== ENCOUNTER 2021-08-15 15:02 | Outpatient (RCR) | payer OTHER, SELFPAY | END 2021-11-13 23:59 | disposition home or self-care (01) | LOC: ANHOBOP 15:02 | PROVIDERS: Visit Provider Pediatrics | DX: Z39.1 Encounter for care and examination of lactating mother (principal) | CPT/HCPCS: 99199 ==

== ENCOUNTER 2023-05-07 15:01 | Emergency (ER) | payer OTHER, SELFPAY ==
--- NOTE | 2023-05-07 15:20 | ED.HEATRA ---
HPI - Head Injury General Chief complaint: Head Injury Stated complaint: hit head yesterday-concussion symptoms Time Seen by Provider: 05/07/23 15:11 History of Present Illness HPI Narrative: Pt opened door yesterday and struck self in forehead. Pt did not lose consciousness. Pt says she has a little light sensitivity and a little pressure across her forehead. 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 Pt denies neuro deficits. Related Data Home Medications Medication Instructions Recorded Confirmed prenat.vits,sylvia,[id number] 1 tablet PO DAILY 12/28/20 07/10/22 lactobacillus combination no.4 3 3,000 mmu cells PO DAILY 06/13/21 07/10/22 billion cell capsule (Probiotic) copper 380 square mm intrauterine 1 device intrauterine ONCE 10/10/21 07/10/22 device (ParaGard T 380A) fenugreek seed extract 500 mg mg PO 06/26/22 07/10/22 capsule Allergies Allergy/AdvReac Type Severity Reaction Status Date / Time No Known Allergies Allergy Verified 05/07/23 15:02 Review of Systems Review of Systems: All systems reviewed & are unremarkable except as noted in HPI and below PMFSH Surgical History Surgical History History of tonsillectomy [place] teeth removed Family History Family History Grandparent Hypertension Family history of elevated blood lipids Cerebrovascular accident Family history of coronary artery disease Diabetes mellitus Aneurysm Mother Hypertension Family history of elevated blood lipids Father Family history of pulmonary embolism Patient's father is Grandparent Cerebrovascular accident Hypertension Diabetes mellitus Mother Hypertension Grandparent Diabetes mellitus Cerebrovascular accident Mother Hypertension Other Family history of malignant neoplasm of breast Social History Social History Smoking status: Never smoker Tobacco type: e-cigarettes/vaping Second hand tobacco smoke exposure: No Alcohol intake: former Substance use: never Spiritual care concerns: No Exam Const: General: healthy appearing Nutritional Appearance: well nourished Orientation/consciousness: patient oriented x3 Limitations: no limitations HENMT: Head: contusion left frontal Face and sinus: normal facial exam Neck: Neck: normal visual inspection Resp: Effort & Inspection: normal respiratory effort Auscultation: clear to auscultation bilaterally Cardio: Rate: regular rate Rhythm: regular rhythm GI: GI Palp: Yes Soft to palpation Auscultation: normal bowel sounds Skin: General skin exam: normal color Rashes: no rashes Wounds: no wounds Neuro: General: patient oriented x3, moves all extremities and no focal motor deficits Cranial nerves: Yes CN's II-XII intact bilaterally and Yes Nystagmus not present Speech: normal speech Extrem: General: normal to inspection and no clubbing, cyanosis or edema Psych: Mental Status: mental status grossly normal Affect: normal affect Attitude: cooperative MDM - Head Injury MDM Narrative Medical decision making narrative: pt has only mild symptoms of concussion discussed CT head and pt would rather not have the test. Discharge Plan Discharge Clinical Impression: Head injury Patient Disposition: Home, Self-Care Condition: Stable Instructions: Antibiotic Form, Concussion (ED) Prescriptions: No Action prenat.vits,sylvia,ibr-ildy-demtv Tablet 1 tablet PO DAILY Probiotic 3 billion cell capsule 3,000 mmu cells PO DAILY Rx Instructions: administer with a meal ParaGard T 380A 380 square mm intrauterine device 1 device intrauterine ONCE Rx Instructions: as a single dose fenugreek seed extract 500 mg capsule PO Follow-up/Refer
== END 2023-05-07 15:55 | disposition home or self-care (01) ==
LOC: ANHED 15:42
PROVIDERS: Emergency Provider Emergency Medicine
DX: S09.90XA Unspecified injury of head, initial encounter (principal); W22.8XXA Striking against or struck by other objects, initial encounter
CPT/HCPCS: 99282

== ENCOUNTER 2023-07-16 11:59 | Outpatient (CLI) | payer OTHER, SELFPAY ==
[2023-07-21 05:02] LABS: Prolactin 4.1 ng/mL (***)
== END 2023-07-16 12:00 | disposition home or self-care (01) ==
LOC: ANHLAB 12:01
PROVIDERS: Visit Provider Obstetrics & Gynecology
DX: N64.3 Galactorrhea not associated with childbirth (principal)
CPT/HCPCS: 36415; 84146

== ENCOUNTER 2024-02-12 08:27 | Outpatient (CLI) | payer OTHER, SELFPAY ==
[2024-02-12 10:23] LABS: Beta HCG Quantitative 21.21 mIU/ML
== END 2024-02-12 08:28 | disposition home or self-care (01) ==
LOC: ANHLAB 08:29
PROVIDERS: Visit Provider Obstetrics & Gynecology
DX: O26.851 Spotting complicating pregnancy, first trimester (principal)
CPT/HCPCS: 36415; 84702

== ENCOUNTER 2024-02-14 10:09 | Outpatient (CLI) | payer OTHER, SELFPAY ==
[2024-02-14 10:55] LABS: Beta HCG Quantitative 19.68 mIU/ML
== END 2024-02-14 10:10 | disposition home or self-care (01) ==
LOC: ANHLAB 10:10
PROVIDERS: Visit Provider Obstetrics & Gynecology
DX: O26.851 Spotting complicating pregnancy, first trimester (principal); Z3A.00 Weeks of gestation of pregnancy not specified
CPT/HCPCS: 36415; 84702

== ENCOUNTER 2024-02-17 09:15 | Outpatient (CLI) | payer OTHER, SELFPAY ==
[2024-02-17 10:13] LABS: Beta HCG Quantitative 4.81 mIU/ML
== END 2024-02-17 09:16 | disposition home or self-care (01) ==
PROVIDERS: Visit Provider Nurse Practitioner Obstetrics & Gynecology
DX: O20.9 Hemorrhage in early pregnancy, unspecified (principal); Z3A.00 Weeks of gestation of pregnancy not specified
CPT/HCPCS: 36415; 84702

== ENCOUNTER 2024-03-04 10:28 | Outpatient (CLI) | payer OTHER, SELFPAY ==
[2024-03-04 11:33] LABS: Beta HCG Quantitative < 2.39 mIU/ML
== END 2024-03-04 10:29 | disposition home or self-care (01) ==
PROVIDERS: Visit Provider Obstetrics & Gynecology
DX: O03.9 Complete or unspecified spontaneous abortion without complication (principal)
CPT/HCPCS: 36415; 84702

== ENCOUNTER 2024-06-15 10:17 | Outpatient (CLI) | payer OTHER, SELFPAY ==
[2024-06-15 11:12] LABS: Beta HCG Quantitative 858.87 mIU/ML
[2024-06-16 02:43] LABS: Progesterone 32.7 ng/mL
== END 2024-06-15 10:18 | disposition home or self-care (01) ==
PROVIDERS: PCP Nurse Practitioner; Visit Provider Obstetrics & Gynecology
DX: O09.299 Supervision of pregnancy with other poor reproductive or obstetric history, unspecified trimester (principal); Z3A.00 Weeks of gestation of pregnancy not specified
CPT/HCPCS: 36415; 84144; 84702

== ENCOUNTER 2024-06-17 15:13 | Outpatient (CLI) | payer OTHER, SELFPAY | END 2024-06-17 15:14 | disposition home or self-care (01) | LOC: ANHLAB 15:16 | PROVIDERS: PCP Nurse Practitioner; Visit Provider Obstetrics & Gynecology | DX: O09.299 Supervision of pregnancy with other poor reproductive or obstetric history, unspecified trimester (principal); Z3A.00 Weeks of gestation of pregnancy not specified | CPT/HCPCS: 36415; 84702 ==

== ENCOUNTER 2024-06-24 13:54 | Outpatient (CLI) | payer OTHER, SELFPAY ==
--- NOTE | ~2024-06-24 | US_ITS ---
EXAMINATION: US OB <=14 wk fetus w TV DATE: 06/24/2024 15:35 INDICATION: 2 days of spotting during first trimester . TECHNIQUE: Real-time pelvic ultrasound utilizing transabdominal probe was performed. The vijay owens radiologist was not present for the study. COMPARISON: None. FINDINGS: The uterus measures 9.2 x 4.3 x 5.1 cm. There is an intrauterine gestational sac with yolk sac but n o definitive pole likely due to to early stage of . The mean sac diameter measures 1.3 cm, which correlates with an estimated gestational age of 6 weeks and 1 days. There is a 1.8 x 1.3 x 0.7 cm hypoechoic likely subchorionic hematoma extending caudally from the gestational sac. The right ovary measures 2.9 x 1.7 x 1.7 cm. The left ovary measures 3.9 x 3.4 x 4.0 cm. There is a 2 .8 x 2.5 x 2.1 cm anechoic likely corpus luteum cyst in the left ovary with peripheral increased vasc ular flow on color Doppler. Lesser flow sulci identified on color Doppler at the right ovary. There i s a minimal amount of free fluid in the pelvis. IMPRESSION: 1. Single intrauterine gestational sac with yolk sac but no discernible pole likely due to rosario y stage of . 2. Gestational age by ultrasound based upon 1.3 cm mean sac diameter of 6 weeks 1 day(s) +/- 4 day(s ) with ultrasound estimated date of delivery (TERESA) of 02/16/2025. 3. Small subchorionic hematoma. Reviewed, dictated and finalized at location B. IMPRESSION: 1. Single intrauterine gestational sac with yolk sac but no discernible p ole likely due to early stage of . 2. Gestational age by ultrasound based upon 1.3 cm mean sac diameter of 6 week s 1 day(s) +/- 4 day(s) with ultrasound estimated date of delivery (TERESA) of 02/04. 3. Small subchorionic hematoma.
== END 2024-06-24 13:55 | disposition home or self-care (01) ==
LOC: ANHIMG 13:58
PROVIDERS: PCP Nurse Practitioner; Visit Provider Obstetrics & Gynecology
DX: O26.851 Spotting complicating pregnancy, first trimester (principal); Z3A.01 Less than 8 weeks gestation of pregnancy
CPT/HCPCS: 36415; 76801; 76817; 84702

== ENCOUNTER 2024-07-01 11:54 | Outpatient (CLI) | payer OTHER, SELFPAY ==
--- NOTE | ~2024-07-01 | US_ITS ---
EXAMINATION: US OB <=14 wk fetus w TV DATE: 07/01/2024 13:09 INDICATION: First trimester with inconclusive viability TECHNIQUE: Real-time pelvic ultrasound utilizing both a transvaginal and transabdominal probe was pe rformed. The interpreting radiologist was not present for the study. COMPARISON: None. FINDINGS: The uterus measures 9.7 x 6.3 x 5.0 cm. There is an intrauterine gestational sac. A yolk sac and fet al pole are identified. The crown rump length measures 7 mm, which correlates with an estimated gesta tional age of 6 weeks and 4 days. heart motion is identified measuring 122 beats per minute (bp m) by M-mode Doppler.13 x 12 x 6 mm anechoic subchorionic hematoma along the cephalad right anterior margin of the gestational sac. Normal cervical length of 3.6 cm. The right ovary measures 2.4 x 2.2 x 1.5 cm. The left ovary measures 4.1 x 4.0 x 3.3 cm. Vascular kiko w identified in both ovaries on color Doppler. There is increased vascular flow at the periphery of a 3.0 x 2.2 x 2.1 cm corpus luteum cyst in the left ovary. There is minimal amount of anechoic free fl uid in the cul-de-sac. IMPRESSION: 1. Single living fetus with heart rate of 122 bpm. 2. Gestational age by ultrasound based on crown-rump length of 7 mm of 6 weeks 4 day(s) +/- 4 day(s) with ultrasound estimated date of delivery (TERESA) of . 3. Small subchorionic hematoma. Reviewed, dictated and finalized at location A.
== END 2024-07-01 11:55 | disposition home or self-care (01) ==
PROVIDERS: PCP Nurse Practitioner; Visit Provider Obstetrics & Gynecology
DX: O46.90 Antepartum hemorrhage, unspecified, unspecified trimester (principal); O36.80X0 Pregnancy with inconclusive fetal viability, not applicable or unspecified; Z3A.00 Weeks of gestation of pregnancy not specified
CPT/HCPCS: 76801; 76817

== ENCOUNTER 2024-07-09 16:17 | Emergency (ER) | payer OTHER, SELFPAY ==
[2024-07-09 16:25] VITALS: BP 108/67; PULSE 60; RESP 18; TEMP 36.7; O2SAT 97
--- NOTE | 2024-07-09 16:56 | PC.NURSE ---
Pt approached nurses station saying I'm gonna go. GCS 15. Ambulatory with a steady gait.
== END 2024-07-09 17:01 | disposition left against medical advice (07) ==
LOC: ANHED 17:00
PROVIDERS: PCP Nurse Practitioner
DX: N93.9 Abnormal uterine and vaginal bleeding, unspecified (principal)
CPT/HCPCS: 99199

== ENCOUNTER 2024-08-19 10:27 | Outpatient (CLI) | payer OTHER, SELFPAY | END 2024-08-19 10:28 | disposition home or self-care (01) | LOC: ANHLAB 10:29 | PROVIDERS: PCP Nurse Practitioner; Visit Provider Obstetrics & Gynecology | DX: Z34.90 Encounter for supervision of normal pregnancy, unspecified, unspecified trimester (principal) | CPT/HCPCS: 36415; 86850; 86900; 86901; 87086 ==

== ENCOUNTER 2024-11-23 15:45 | Outpatient (CLI) | payer OTHER, SELFPAY ==
[2024-11-23 16:56] LABS: Basophils Percent Auto 0.3 % (0.2-1.2); Eosinophils Absolute Auto 0.2 K/mm3 (0-0.3); Hematocrit 34.2 % (37.0-47.0); Hemoglobin 11.6 g/dL (12.0-15.0); Immature Granulocyte Absolute 0.11 K/mm3 (0.00-0.031); Lymphocytes Absolute Auto 1.45 K/mm3 (0.9-3.2); Lymphocytes Percent Auto 13.7 % (18.3-44.2); Mean Corpuscular HGB Conc 33.9 g/dl (32-36); Mean Corpuscular Volume 97.2 fl (80-100); Mean Platelet Volume 9.6 fl (7.4-10.4); Monocytes Absolute Auto 0.6 K/mm3 (0.1-0.6); Monocytes Percent Auto 5.3 % (2.6-8.5); Neutrophils Absolute Auto 8.2 K/mm3 (1.3-6.7); Neutrophils Percent Auto 77.7 % (45.5-73.1); Platelet Count Result 202 k/mm3 (150-375); Red Blood Count 3.52 M/mm3 (4.2-5.4); Red Cell Distribution Width 12.6 % (11.5-14.5); White Blood Count 10.6 K/mm3 (4.5-10.0)
[2024-11-23 17:14] LABS: Glucose 1 Hour PP 50gm Dose 121 mg/dL
--- OUTSIDE RECORDS SUMMARY | 2024-11-23 18:13 | XMS_ITS | Referral Summary ---
Author Organization [facility] [address] Address [address] [place] [id number] Care Team Providers Care Seater Grinder Name Role Phone Unknown, Notinfile Primary Care Provider Unavail able Allergies No known active allergies Medications No known medications Active Problems No known active problems Social History Tobacco Use Types Packs/Day Years Used Date Smoking Tobacco: Never Assessed Comments Unknown Sex and Gender Information Value Date Recorded Sex Assigned at Not on file Legal Sex Female 11:09 AM CDT Gender Identity Not on file Sexual Orientation Not on file Last Filed Vital Signs Vital Sign Reading Time Taken Comments Blood Pressure 113/73 05/09/2023 2:57 PM CDT Pulse 103 05/09/2023 2:57 PM CDT Temperature 36.8 C (98.2 F) 05/09/2023 2:57 PM CDT Respiratory Rate 18 05/09/2023 2:57 PM CDT Oxygen Saturation 98% 05/09/2023 2:57 PM CDT Inhaled Oxygen Concentration - - Weight 57 kg (125 lb 9.6 oz) 05/09/2023 2:57 PM CDT Height 162.6 cm (5' 4 ) 05/09/2023 2:57 PM CDT Body Mass Index 21.56 05/09/2023 2:57 PM CDT Plan of Treatment Not on file Insurance [facility] H[facility]PPO Address: [address] [address] [place] [phone] [facility] [employer] [employer]PPO Address: [place] [phone] Care Teams Seater Grinder Relationship Specialty Start Date End Date Unknown, Notinfile PCP - General 05/09/23
--- OUTSIDE RECORDS SUMMARY | 2024-11-23 18:13 | XMS_ITS | Clinical Summary ---
Author Organization [facility] Address [address] [place] [address] Phone Care Team Providers Care Vehicle Service Attendant Name Role Phone Zeyad Huertas MD Primary Care Provider [phone] Encounters Date Type Department Care Team Description 11/09/2024 3:45 PM VENEER JOINTER OFFBEARER - 11/09/2024 11:59 PM VENEER JOINTER OFFBEARER Hospital Encounter [facility] [address] [place] [phone] Kourtney Salomon MD Discharge Disposition: Home or Self Care 11/04/2024 External Device Data STL ABSTRACTION Provider, Abstract 10/29/2024 External Device Data STL ABSTRACTION Provider, Abstract 10/19/2024 1:52 PM VENEER JOINTER OFFBEARER - 10/19/2024 11:59 PM VENEER JOINTER OFFBEARER Hospital Encounter [facility] [address] [place] [phone] Kourtney Salomon MD Discharge Disposition: Home or Self Care 09/29/2024 External Device Data STL ABSTRACTION Provider, Abstract 09/28/2024 12:43 PM VENEER JOINTER OFFBEARER - 09/28/2024 11:59 PM VENEER JOINTER OFFBEARER Hospital Encounter [facility] [address] [place] [phone] Lauren Guerrero MD Discharge Disposition: Home or Self Care from Last 3 Months Social History Tobacco Use Types Packs/Day Years Used Date Smoking Tobacco: Never Assessed Comments Unknown Sex and Gender Information Value Date Recorded Sex Assigned at Not on file Legal Sex Female 12:52 PM CDT Gender Identity Not on file Sexual Orientation Not on file Plan of Treatment Health Maintenance Due Date Last Done Comments CERVICAL CANCER SCREENING 2016 INFLUENZA VACCINE (#1) 2024 COVID-19 Vaccine (3 - 2023-2 5 season) 2024 12/24/2021, 11/25/2021 DTAP/TDAP/TD VACCINES (3 - T d or Tdap) 08/07/2031 08/07/2021, 03/07/2010, 05/20/2001, Additional history exists HEPATITIS B VACCINES Completed 02/26/1996, 1995, 1995 HPV VACCINES Completed 09/08/2010, 11/2009, 03/07/2010 Procedures Procedure Name Priority Date/Time Associated Diagnosis Comments US OB FOLLOW UP PER FETUS Routine 11/09/2024 4:22 PM VENEER JOINTER OFFBEARER screening for malformation using ultrasonics Cervical shortening affecting in second trimester US OB LTD 1 OR MORE FETUS + TV Routine 10/19/2024 2:14 PM VENEER JOINTER OFFBEARER screening for malformation using ultrasonics Cervical shortening affecting in second trimester US OB 14+ WKS SINGLE GEST Routine 09/28/2024 1:58 PM VENEER JOINTER OFFBEARER screening for malformation using ultrasonics from Last 3 Months Results * US OB FOLLOW UP PER FETUS (11/09/2024 4:22 PM VENEER JOINTER OFFBEARER) Anatomical Region Laterality Modality Pelvis Ultrasound 11/09/2024 3:49 PM VENEER JOINTER OFFBEARER Narrative 11/11/2024 8:00 AM VENEER JOINTER OFFBEARER STL FOLLOW UP ----- Pat. Name: TUSHAR RODRIGUEZ Study Date: 11/09/2024 3:49pm Pat. NO: [id number] Referring MD: LAUREN GUERRERO MD Site: [place] Licensed Loan Officer: Trena Rose RDMS : 1995 Age: 29 ----- INDICATION ----- Screening Follow-Up CODING ----- Diagnoses Z3A.25: Weeks of gestation Z36.2: Encounter for other screening follow-up Procedures 62481: Ultrasound, uterus, real time with image documentation, follow up, transabdominal approach per fetus HISTORY ----- OB History 1 METHOD ----- Transabdominal ultrasound examination ----- Walter . Number of fetuses: 1 DATING ----- Cycle: regular cycle GA by prior assessment 25 w + 6 d TERESA by prior assessment: 02/16/2025 Ultrasound examination on: 11/09/2024 GA by U/S based upon: AC, BPD, EFW, Femur, HC GA by U/S 25 w + 5 d TERESA by U/S: 02/17/2025 Method of dating: Restore dating from previous exam Assigned: based on stated TERESA, selected on 09/28/2024 Assigned GA 25 w + 6 d Assigned TERESA: 02/16/2025 BIOMETRY ----- BPD 65.1 mm 26w 2d 56% Hadlock OFD 82.6 mm 26w 6d 77% Sarwat HC 237.6 mm 25w 6d 24% Hadlock AC 213.6 mm 25w 6d 41% Hadlock Femur 46.4 mm 25w 3d 23% Hadlock HC / AC 1.11 44% Nicolaides Weight Calculation: EFW 845 g 25w 3d 34% Hadlock EFW (lb,oz) 1 lb 14 oz EFW by Hadlock ([id number]) Head / Face / Neck Biometry: Intermediate Card Tender 8.1 mm Extremities / Bony Struc Biometry: FL / BPD 0.71 FL / HC 0.20 FL / AC 0.22 GENERAL EVALUATION ----- Cardiac activity present. FHR 148 bpm. movements: present. Presentation: cephalic Placenta: Placental site: posterior Umbilical cord: Cord vessels: 3 vessel cord. Amniotic fluid: Amount of AF: normal amount. MVP 5.9 cm. MARLA 18.7 cm. Q1 5.1 cm, Q2 5.4 cm, Q3 5.9 cm, Q4 2.4 cm ANATOMY ----- The following structures appear normal: Head / Neck Cranium. Lateral ventricles. Choroid plexus. Midline falx. Cavum septi pellucidi. Heart / Thorax Diaphragm. Abdomen Stomach. Kidneys. Bladder. Spine Cervical spine. Thoracic spine. Lumbar spine. Sacral spine. GROWTH OVERVIEW ----- Exam date GA BPD (mm) HC (mm) AC (mm) FL (mm) HL (mm) EFW (g) 09/28/2024 19w 6d 44.5 33% 168.1 24% 154.1 69% 31.8 44% 29.3 43% 336 62% 11/09/2024 25w 6d 65.1 56% 237.6 24% 213.6 41% 46.4 23% 845 34% COMMENT ----- Patient's name and date of were verified by the operations manager prior to the exam IMPRESSION ----- Impression: Walter viable intrauterine at 25w 6d in cephalic presentation. Estimated weight is 845 g (34%ile) with abdominal circumference at the 41%ile. Amniotic fluid volume is normal amount (Amniotic fluid index = 18.7 cm, maximum vertical pocket = 5.9 cm). No major malformations identified within the limitations of ultrasound. Anatomic views are now complete, including previous suboptimal views. Recommendation: - Follow up as clinically indicated. - Consider interval growth and anatomy at 32-36 weeks unless clinically indicated earlier at location of primary provider's preference. Thank you for inviting us to participate in your patient's care. ADDENDUM ----- RETRIGGER Procedure Note Sussy Jenkins MD - 11/11/2024 STL FOLLOW UP ----- Pat. Name:Divine RODRIGUEZ Date:11/09/2024 3:49pm Pat. NO: [id number] MD:LAUREN GUERRERO [facility] Rose RDMS :1995Age:29 ----- INDICATION ----- Screening Follow-Up CODING ----- Diagnoses Z3A.25: Weeks of gestation Z36.2: Encounter for other screeningfollow-up Procedures 31203: Ultrasound, uterus, real time withimage documentation, follow up, transabdominal approach per fetus HISTORY ----- OB History 1 METHOD ----- Transabdominal ultrasound examination ----- Walter . Number of fetuses: 1 DATING ----- Cycle:regular cycle GA by prior [id number] w + 6 d TERESA by prior assessment:02/16/2025 Ultrasound examination on:11/09/2024 GA by U/S based upon:AC, BPD, EFW, Femur, HC GA by U/S25 w + 5 d TERESA by U/S:02/17/2025 Method of dating:Restore dating from previous exam Assigned:based on stated TERESA, selected on 09/28/2024 Assigned GA25 w + 6 d Assigned TERESA:02/16/2025 BIOMETRY ----- BPD 65.1 mm 26w 2d 56%Hadlock OFD 82.6 mm 26w 6d 77%Sarwat HC 237.6 mm 25w 6d 24%Hadlock AC 213.6 mm 25w 6d 41%Hadlock Femur 46.4 mm 25w 3d 23%Hadlock HC / AC 1.11 44%Nicolaides Weight Calculation: EFW 845 g 25w 3d 34%Hadlock EFW (lb,oz) 1 lb 14 oz EFW by Hadlock ([id number]) Head / Face / Neck Biometry: Intermediate Card Tender 8.1mm Extremities / Bony Struc Biometry: FL / BPD 0.71 FL / HC 0.20 FL / AC 0.22 GENERAL EVALUATION ----- Cardiac activity present. FHR 148 bpm. movements: present.Presentation: cephalic Placenta: Placental site: posterior Umbilical cord: Cord vessels: 3 vessel cord. Amniotic fluid: Amount of AF: normal amount. MVP 5.9 cm. MARLA 18.7 cm. Q15.1 cm, Q2 5.4 cm, Q3 5.9 cm, Q4 2.4 cm ANATOMY ----- The following structures appear normal: Head / Neck Cranium. Lateral ventricles. Choroid plexus.Midline falx. Cavum septi pellucidi. Heart / Thorax Diaphragm. Abdomen Stomach. Kidneys. Bladder. Spine Cervical spine. Thoracic spine. Lumbar spine.Sacral spine. GROWTH OVERVIEW ----- Exam date GA BPD (mm) HC (mm) AC (mm) FL(mm) HL (mm) EFW (g) 09/28/2024 19w 6d 44.5 33% 168.1 24% 154.1 69%31.8 44% 29.3 43% 336 62% 11/09/2024 25w 6d 65.1 56% 237.6 24% 213.6 41%46.4 23% 845 34% COMMENT ----- Patient's name and date of were verified by the operations manager prior tothe exam IMPRESSION ----- Impression: Walter viable intrauterine at 25w 6d in cephalicpresentation. Estimated weight is 845 g (34%ile) with abdominal circumference atthe 41%ile. Amniotic fluid volume is normal amount (Amniotic fluid index = 18.7 cm,maximum vertical pocket = 5.9 cm). No major malformations identified within the limitations of ultrasound. Anatomic views are now complete, including previous suboptimal views. Recommendation: - Follow up as clinically indicated. - Consider interval growth and anatomy at 32-36 weeks unlessclinically indicated earlier at location of primary provider's preference. Thank you for inviting us to participate in your patient's care. ADDENDUM ----- RETRIGGER us Kourtney Salomon MD US ORDERABLES Edited Result - Final * US OB LTD 1 OR MORE FETUS + TV (10/19/2024 2:14 PM VENEER JOINTER OFFBEARER) Anatomical Region Laterality Modality Pelvis Ultrasound 10/19/2024 1:54 PM VENEER JOINTER OFFBEARER Narrative 10/19/2024 2:29 PM VENEER JOINTER OFFBEARER STL LIMITED ----- Pat. Name: TUSHAR RODRIGUEZ Study Date: 10/19/2024 1:54pm Pat. NO: [id number] Referring MD: LAUREN GUERRERO MD Site: [place] Licensed Loan Officer: Araceli Douglas RDMS : 1995 Age: 29 ----- INDICATION ----- Cervical Shortening, Confirmed Per TA on prior scan CODING ----- Diagnoses Z3A.22: Weeks of gestation O26.872: Cervical shortening Procedures 73110: Ultrasound, uterus, real time with image documentation, limited one or more fetuses 41416: Ultrasound, uterus, real time with image documentation HISTORY ----- OB History 1 METHOD ----- Transabdominal and transvaginal ultrasound examination ----- Walter . Number of fetuses: 1 DATING ----- Cycle: regular cycle GA by prior assessment 22 w + 6 d TERESA by prior assessment: 02/16/2025 Method of dating: Restore dating from previous exam Assigned: based on stated TERESA, selected on 09/28/2024 Assigned GA 22 w + 6 d Assigned TERESA: 02/16/2025 GENERAL EVALUATION ----- Cardiac activity present. FHR 131 bpm. movements: present. Presentation: breech Placenta: Placental site: posterior Umbilical cord: Cord vessels: 3 vessel cord. Insertion site: placental insertion: normal Amniotic fluid: Amount of AF: normal amount. MVP 5.6 cm ANATOMY ----- The following structures appear normal: Heart / Thorax Ductal arch view. Cardiac rhythm. Abdomen Stomach. Bladder. MATERNAL STRUCTURES ----- Cervix Normal Approach - Transvaginal: Cervical length 37.8 mm GROWTH OVERVIEW ----- Exam date GA BPD (mm) HC (mm) AC (mm) FL (mm) HL (mm) EFW (g) 09/28/2024 19w 6d 44.5 33% 168.1 24% 154.1 69% 31.8 44% 29.3 43% 336 62% COMMENT ----- Patient's name and date of were verified by the operations manager prior to the exam. 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 IMPRESSION ----- TUSHAR is here for follow up ultrasound to complete anatomy. 1. Single intrauterine gestation with a gestational age of 22w 6d, based on the reported clinical dates. 2. Unremarkable limited anatomy noted. The previously suboptimally visualized anatomy (ductal) appears grossly normal. The anatomic survey is now complete. 3. The amniotic fluid is normal for gestational age (DVP of 5.6 cm). 4. Fundal placenta appears normal. 5. The transvaginal minimum cervical length is 33.5cm, which is normal for this gestational age. Recommendations: - Follow up ultrasounds as clinically indicated. - Recommend interval third trimester growth and anatomy at 32 weeks. Thank you for allowing us to participate in the care of this patient. Procedure Note Ca Mckeon MD - 10/19/2024 STL LIMITED ----- Pat. Name:Divine RODRIGUEZ Date:10/19/2024 1:54pm Pat. NO: [id number] :LARUEN GUERRERO MD [facility]Araceli Douglas RDMS :1995Age:29 ----- INDICATION ----- Cervical Shortening, Confirmed Per TA on priorscan CODING ----- Diagnoses Z3A.22: Weeks of gestation O26.872: Cervical shortening Procedures 01754: Ultrasound, uterus, real time withimage documentation, limited one or more fetuses 87491: Ultrasound, uterus, real time withimage documentation HISTORY ----- OB History 1 METHOD ----- Transabdominal and transvaginal ultrasound examination ----- Walter . Number of fetuses: 1 DATING ----- Cycle:regular cycle GA by prior [id number] w + 6 d TERESA by prior assessment:02/16/2025 Method of dating:Restore dating from previous exam Assigned:based on stated TERESA, selected on 09/28/2024 Assigned GA22 w + 6 d Assigned TERESA:02/16/2025 GENERAL EVALUATION ----- Cardiac activity present. FHR 131 bpm. movements: present.Presentation: breech Placenta: Placental site: posterior Umbilical cord: Cord vessels: 3 vessel cord. Insertion site: placentalinsertion: normal Amniotic fluid: Amount of AF: normal amount. MVP 5.6 cm ANATOMY ----- The following structures appear normal: Heart / Thorax Ductal arch view. Cardiac rhythm. Abdomen Stomach. Bladder. MATERNAL STRUCTURES ----- Cervix Normal Approach - Transvaginal: Cervical length 37.8 mm GROWTH OVERVIEW ----- Exam date GA BPD (mm) HC (mm) AC (mm) FL(mm) HL (mm) EFW (g) 09/28/2024 19w 6d 44.5 33% 168.1 24% 154.1 69%31.8 44% 29.3 43% 336 62% COMMENT ----- Patient's name and date of were verified by the operations manager prior tothe exam. 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 IMPRESSION ----- TUSHAR is here for follow up ultrasound to complete anatomy. 1. Single intrauterine gestation with a gestational age of 22w 6d, basedon the reported clinical dates. 2. Unremarkable limited anatomy noted. The previously suboptimallyvisualized anatomy (ductal) appears grossly normal. The anatomic survey is now complete. 3. The amniotic fluid is normal for gestational age (DVP of 5.6 cm). 4. Fundal placenta appears normal. 5. The transvaginal minimum cervical length is 33.5cm, which is normal forthis gestational age. Recommendations: - Follow up ultrasounds as clinically indicated. - Recommend interval third trimester growth and anatomy at 32weeks. Thank you for allowing us to participate in the care of this patient. us Kourtney Salomon MD US ORDERABLES Final Result * US OB 14+ WKS SINGLE GEST (09/28/2024 1:58 PM VENEER JOINTER OFFBEARER) Anatomical Region Laterality Modality Pelvis Ultrasound 09/28/2024 12:5 5 PM VENEER JOINTER OFFBEARER Narrative 09/28/2024 2:00 PM VENEER JOINTER OFFBEARER STL BASIC ----- Pat. Name: TUSHAR RODRIGUEZ Study Date: 09/28/2024 12:55pm Pat. NO: [id number] Referring MD: LAUREN GUERRERO MD Site: [place] Licensed Loan Officer: Trena Rose RDMS : 1995 Age: 29 ----- INDICATION ----- Anatomy Survey pt states low risk NIPT CODING ----- Diagnoses Z3A.19: Weeks of gestation Z36.3: Encounter for screening for malformations Procedures 32553: Ultrasound, uterus, real time with image documentation, and maternal evaluation, after first trimester (> or = 14 weeks 0 days), transabdominal approach; single or first gestation HISTORY ----- OB History 1 MATERNAL ASSESSMENT ----- Physical Exam Weight 61 kg. BMI 23.00 kg/m METHOD ----- Transabdominal ultrasound examination ----- Walter . Number of fetuses: 1 DATING ----- Cycle: regular cycle Method of dating: based on stated TERESA GA by prior assessment 19 w + 6 d TERESA by prior assessment: 02/16/2025 Ultrasound examination on: 09/28/2024 GA by U/S based upon: AC, BPD, EFW, Femur, HC GA by U/S 19 w + 6 d TERESA by U/S: 02/16/2025 Assigned: based on stated TERESA, selected on 09/28/2024 Assigned GA 19 w + 6 d Assigned TERESA: 02/16/2025 BIOMETRY ----- BPD 44.5 mm 19w 3d 33% Hadlock OFD 60.1 mm 20w 5d 81% Sarwat HC 168.1 mm 19w 3d 24% Hadlock Cerebellum tr 20.4 mm 20w 1d 63% Cortes Nuchal fold 4.3 mm AC 154.1 mm 20w 4d 69% Hadlock Femur 31.8 mm 19w 6d 44% Hadlock Humerus 29.3 mm 19w 4d 43% Sarwat HC / AC 1.09 9% Nicolaides Weight Calculation: EFW 336 g 20w 1d 62% Hadlock EFW (lb,oz) 0 lb 12 oz EFW by Hadlock ([id number]) Head / Face / Neck Biometry: Intermediate Card Tender 7.1 mm CM 2.4 mm <1% Nicolaides Outer IOD 28.2 mm 18w 2d 7% Sarwat Extremities / Bony Struc Biometry: FL / BPD 0.71 67% Hadlock FL / HC 0.19 68% Hadlock FL / AC 0.21 21% Hadlock GENERAL EVALUATION ----- Cardiac activity present. FHR 138 bpm. movements: visualized. Presentation: Variable Placenta: Placental site: posterior Umbilical cord: Cord vessels: 3 vessel cord. Insertion site: placental insertion: normal Amniotic fluid: Amount of AF: normal amount. MVP 5.4 cm ANATOMY ----- The following structures appear normal: Head / Neck Cranium. Lateral ventricles. Choroid plexus. Midline falx. Cavum septi pellucidi. Cerebellum. Cisterna magna. Nuchal fold. Face Lips. Profile. Nose. Palate. Orbits. Heart / Thorax 4-chamber view. RVOT view. LVOT view. 3-vessel view. 5-gwdjfp-lkiaxwz view. Situs. Aortic arch view. Superior vena cava. Inferior vena cava. High short axis view. Cardiac rhythm. Diaphragm. Abdomen Abdominal wall. Stomach. Bladder. Extremities / Arms. Right hand. Left hand. Legs. Right foot. Left foot. Skeleton The following structures could not be adequately visualized: Heart / Thorax Ductal arch view. Abdomen Kidneys. Spine Cervical spine. Thoracic spine. Lumbar spine. Sacral spine. MATERNAL STRUCTURES ----- Cervix Visualized Approach - Transabdominal: Cervical length 33.7 mm Right Ovary Normal Size 19 mm x 14 mm x 17 mm. Vol 2.3 cm Left Ovary Normal Size 24 mm x 23 mm x 25 mm. Vol 7.4 cm GROWTH OVERVIEW ----- Exam date GA BPD (mm) HC (mm) AC (mm) FL (mm) HL (mm) EFW (g) 09/28/2024 19w 6d 44.5 33% 168.1 24% 154.1 69% 31.8 44% 29.3 43% 336 62% COMMENT ----- Patient's name and date of were confirmed by the operations manager prior to the exam IMPRESSION ----- Walter @ 19w 6d referred for anatomical survey. - The biometry is consistent with dates. - Amniotic fluid indices are within normal limits. - The placenta is posterior with a central cord insertion and no evidence of previa or low-lying placenta. - Visualized anatomy is unremarkable. However some views were limited due to persistent poor position and maternal body acoustics. - On transabdominal imaging, the cervix appears short. Transvaginal ultrasound is indicated to measure the cervical length, but patient declining due to insurance reasons. A short cervix increases the risk of , necessitating evaluation by transvaginal approach when the cervix is short on transabdominal imaging. A transvaginal ultrasound was offered in 1 week to allow patient to discuss with her insurance. A follow up ultrasound is scheduled in 4 weeks to check growth and to complete the anatomy. Thank you for allowing us to participate in the care of your patient. Procedure Note Kourtney Salomon MD - 09/28/2024 STL BASIC ----- Pat. Name:Divine RODRIGUEZ Date:09/28/2024 12:55pm Pat. NO: [id number] MD:LAUREN GUERRERO MD [facility]Trena Rose RDMS :1995Age:29 ----- INDICATION ----- Anatomy Survey pt states low riskNIPT CODING ----- Diagnoses Z3A.19: Weeks of gestation Z36.3: Encounter for screening formalformations Procedures 21308: Ultrasound, uterus, real time withimage documentation, and maternal evaluation, after first trimester (> or = 14 weeks 0 days),transabdominal approach; single or first gestation HISTORY ----- OB History 1 MATERNAL ASSESSMENT ----- Physical Exam Weight 61 kg. BMI 23.00 kg/m METHOD ----- Transabdominal ultrasound examination ----- Walter . Number of fetuses: 1 DATING ----- Cycle:regular cycle Method of dating:based on stated TERESA GA by prior [id number] w + 6 d TERESA by prior assessment:02/16/2025 Ultrasound examination on:09/28/2024 GA by U/S based upon:AC, BPD, EFW, Femur, HC GA by U/S19 w + 6 d TERESA by U/S:02/16/2025 Assigned:based on stated TERESA, selected on 09/28/2024 Assigned GA19 w + 6 d Assigned TERESA:02/16/2025 BIOMETRY ----- BPD 44.5 mm 19w 3d33% Hadlock OFD 60.1 mm 20w 5d81% Sarwat HC 168.1 mm 19w 3d24% Hadlock Cerebellum tr 20.4 mm 20w 1d63% Cortes Nuchal fold 4.3 mm AC 154.1 mm 20w 4d69% Hadlock Femur 31.8 mm 19w 6d44% Hadlock Humerus 29.3 mm 19w 4d43% Sarwat HC / AC 1.09 9%Nicolaides Weight Calculation: EFW 336 g 20w 1d 62%Hadlock EFW (lb,oz) 0 lb 12 oz EFW by Hadlock ([id number]) Head / Face / Neck Biometry: Intermediate Card Tender 7.1 mm CM 2.4 mm <1%Nicolaides Outer IOD 28.2 mm 18w 2d 7%Sarwat Extremities / Bony Struc Biometry: FL / BPD 0.71 67%Hadlock FL / HC 0.19 68%Hadlock FL / AC 0.21 21%Hadlock GENERAL EVALUATION ----- Cardiac activity present. FHR 138 bpm. movements: visualized.Presentation: Variable Placenta: Placental site: posterior Umbilical cord: Cord vessels: 3 vessel cord. Insertion site: placentalinsertion: normal Amniotic fluid: Amount of AF: normal amount. MVP 5.4 cm ANATOMY ----- The following structures appear normal: Head / Neck Cranium. Lateral ventricles. Choroid plexus.Midline falx. Cavum septi pellucidi. Cerebellum. Cisterna magna. Nuchal fold. Face Lips. Profile. Nose. Palate. Orbits. Heart / Thorax 4-chamber view. RVOT view. LVOT view. 3-vesselview. 6-vasuin-tilnyfr view. Situs. Aortic arch view. Superior vena cava. Inferior vena cava. High shortaxis view. Cardiac rhythm. Diaphragm. Abdomen Abdominal wall. Stomach. Bladder. Extremities / Arms. Right hand. Left hand. Legs. Right foot.Left foot. Skeleton The following structures could not be adequately visualized: Heart / Thorax Ductal arch view. Abdomen Kidneys. Spine Cervical spine. Thoracic spine. Lumbar spine.Sacral spine. MATERNAL STRUCTURES ----- Cervix Visualized Approach - Transabdominal: Cervical length 33.7mm Right Ovary Normal Size 19 mm x 14 mm x 17 mm. Vol 2.3 cm Left Ovary Normal Size 24 mm x 23 mm x 25 mm. Vol 7.4 cm GROWTH OVERVIEW ----- Exam date GA BPD (mm) HC (mm) AC (mm) FL(mm) HL (mm) EFW (g) 09/28/2024 19w 6d 44.5 33% 168.1 24% 154.1 69%31.8 44% 29.3 43% 336 62% COMMENT ----- Patient's name and date of were confirmed by the operations manager priorto the exam IMPRESSION ----- Walter @ 19w 6d referred for anatomical survey. - The biometry is consistent with dates. - Amniotic fluid indices are within normal limits. - The placenta is posterior with a central cord insertion and no evidenceof previa or low-lying placenta. - Visualized anatomy is unremarkable. However some views werelimited due to persistent poor position and maternal body acoustics. - On transabdominal imaging, the cervix appears short. Transvaginalultrasound is indicated to measure the cervical length, but patient declining due to insurance reasons. A short cervix increases the risk of , necessitatingevaluation by transvaginal approach when the cervix is short on transabdominal imaging. A transvaginal ultrasound was offered in 1 week to allow patient todiscuss with her insurance. A follow up ultrasound is scheduled in 4 weeks to check growth andto complete the anatomy. Thank you for allowing us to participate in the care of your patient. us Lauren Guerrero MD ORDERABLES Final Result from Last 3 Months Insurance [facility] [employer] [facility] [id number] [facility] Care Teams Vehicle Service Attendant Relationship Specialty Start Date End Date Zeyad Huertas MD [address] [place] [id number] PCP - General Family Practice 03/27/21
--- OUTSIDE RECORDS SUMMARY | 2024-11-23 18:13 | XMS_ITS | Clinical Summary ---
Author Organization [facility] [address] Address [address] [place] [address] Care Team Providers Care Model Photographers' Name Role Phone Unknown, Notinfile Primary Care [...] on file Sexual Orientation Not on file Obstetrics History Last Filed Vital Signs Vital Sign Reading [...] 05/09/2023 2:57 PM CDT Plan of Treatment Health Maintenance Due Date Last Done Comments Cervical Cancer Screening 1995 Depression Screening 1995 Hepatitis C Screening 1995 Varicella Vaccines (1 of 2 - 13+ 2-dose series) 2008 Regular Well Visit/Exam 18-64 2013 Covid-19 Vaccine ( season) 2024 12/24/2021, 11/25/2021 Influenza Vaccine (#1) 2024 , 10/27/2021, 06/25/2020, Additional history exists DTaP/Tdap/Td Vaccine (8 - Td or Tdap) 08/07/2031 08/07/2021, 03/07/2010, 05/20/2001, Additional history exists HPV Vaccines Completed 09/08/2010, 11/2009, 03/07/2010 Pneumococcal vaccine <65 Aged Out No longer eligible based on patient's age to complete this topic Insurance [facility] CHO[facility] PLUS [facility] CHO[facility] PLUS Care Teams Model Photographers' Relationship Specialty Start Date End Date Unknown, Notinfile PCP - General 05/09/23
--- OUTSIDE RECORDS SUMMARY | 2024-11-23 18:13 | XMS_ITS | Clinical Summary ---
Author Organization [facility] Address [address] [place] [address] Care Team Providers Care Plant Packer Name Role Phone Marsha Monique NP Primary Care Provider [phone] Allergies No known active allergies Medications No known medications Encounters Date Type Department Care Team Description 09/21/2024 12:20 PM DANCE DIRECTOR Office Visit [facility] Family Medicine [facility] [address] [address] Marsha Monique NP Cough (Patient presents with c/o cough, right ear feels full/congested, runny nose, sore throat, both eyes itchy, headache, facial pressure and pain, loss of appetite x 8 days) 09/21/2024 Travel from Last 3 Months Immunizations Name Administration Dates Next Due Dtap (Generic) 05/20/2001, 8,02/26/1996,01/12,1995 HPV4 (Gardasil) 09/08/2010,05/08/2010,03/07/2010 Hepatitis A (Havrix [address]) 05/08/2018 Hepatitis B 02/26/1996,1995,1995 Hib (Generic) 05/21/1998, 6,01/13/1996,11/16 Influenza Adult (Generic) 06/21/2022,,06/25/2020,09/16 MMR (MMRII) 05/20/2001,05/21/1998 MODERNA COVID-19 (12+) MRNA, LNP-S, PF, 100 MCG/ 0.5 ML DOSE 12/24/2021,11/25/2021 Meningococcal (Generic) 03/07/2010 Polio Opv (Generic) 05/20/2001, 8,01/13/1996,11/16 Tdap (Generic) 08/07/2021,03/07/2010 Typhoid (Typhim ) 02/28/2022 Family History Medical History Relation Comments Diabetes Maternal Grandmother Hypertension Mother Skin cancer Paternal Grandmother Relation Status Comments Maternal Grandmother Mother Paternal Grandmother Social History Tobacco Use Types Packs/Day Years Used Date Smoking Tobacco: Never Passive Smoke Exposure: Never Smokeless Tobacco: Never Tobacco Cessation:Counseling Given: No Alcohol Use Standard Drinks/Week Comments Yes 3.3 (1 standard drink = 0.6 oz p ure alcohol) PHQ-2 Answer Date Recorded Patient Health Questionnaire-2 Score 0 09/21/2024 Estimated Date of Delivery Comme nts Yes 02/16/2025 Sex and Gender Information Value Date Recorded Sex Assigned at Not on file Legal Sex Female 10:20 AM CDT Gender Identity Not on file Sexual Orientation Not on file Last Filed Vital Signs Vital Sign Reading Time Taken Comments Blood Pressure 102/62 09/21/2024 12:31 PM DANCE DIRECTOR Pulse 95 09/21/2024 12:31 PM DANCE DIRECTOR Temperature 36.3 C (97.4 F) 09/21/2024 12:31 PM DANCE DIRECTOR Respiratory Rate 16 09/21/2024 12:31 PM DANCE DIRECTOR Oxygen Saturation 98% 09/21/2024 12:31 PM DANCE DIRECTOR Inhaled Oxygen Concentration - - Weight 59.9 kg (132 lb) 09/21/2024 12:31 PM DANCE DIRECTOR Height 163.8 cm (5' 4.5 ) 09/21/2024 12:31 PM CS T Body Mass Index 22.31 09/21/2024 12:31 PM DANCE DIRECTOR Plan of Treatment Health Maintenance Due Date Last Done Comments Hepatitis C 2013 Annual Physical 05/27/2024 05/27/2023 COVID-19 Vaccine ( season) 2024 12/24/2021, 11/25/2021 Influenza Adult (#1) 2024 06/21/2022, 10/27/2021, 06/25/2020, Additional history exists PHQ-2 (Physician [place]) 10/07/2024 09/21/2024 Cervical Cancer Screening Pap Smear (Age 21 to 29) Every 3 Years 06/26/2025 06/26/2022 Cervical Cancer Screening 06/26/2025 PHQ-2 (Physician [place]) 09/21/2025 09/21/2024 DTaP, Tdap and Td Vaccines (8 - Td or Tdap) 08/07/2031 08/07/2021, 03/07/2010, 05/20/2001, Additional history exists Hepatitis B Vaccines Completed 02/26/1996, 1995, 1995 Meningococcal Vaccine Aged Out 03/07/2010 No opal vlad eligible based on patient's age to complete this topic HPV Vaccines Completed 09/08/2010, 11/2009, 03/07/2010 Meningococcal B Vaccine Aged Out No l onger eligible based on patient's age to complete this topic Pneumococcal Vaccine: Pediatrics (0 to 5 Years) and At-Risk Patients (6 to 64 Years) Aged Out No longer eligible based on patient's age to complete this topic RSV Immunization or 60+ Years (No Doses Required) Completed RSV Immunizations Under 20 Months Aged Out No longer eligible based on patient's age to complete this topic Procedures Procedure Name Priority Date/Time Associated Diagnosis Comments STREP A RAPID Routine 09/21/2024 Sore throat CORONAVIRUS (COVID-19) INFLUENZA A & B ANTIGEN IA PANEL Routine 09/21/2024 Acute cough OUTSIDE CYTOPATH CERV/VAG INTERPRET (PAP) 06/26/2022 from Last 3 Months or Most Recently Relevant to Health Maintenance Results * CORONAVIRUS (COVID-19) INFLUENZA A & B ANTIGEN IA PANEL (09/21/2024) CORONAVIRUS ANTIGEN IA NEGATIVE NEGATIVE [address] [place] INFLUENZA A NEGATIVE NEGATIVE [address] [place] INFLUENZA B NEGATIVE NEGATIVE [address] [place] Internal Control: VALID VALID [address] [place] NASAL STRUCTURE / Unknown 09/21/2024 us Marsharfitz Monique SEED CORN MANAGER PRODUCTION MICROBIOLOGY - GENERAL OR DERABLES Final Result [address] [place] [address] [facility] [address] [place] [address], * STREP A RAPID (09/21/2024) RAPID STREP TEST NEGATIVE NEGATIVE [address], [place] Internal Control: VALID VALID [address] [place] STRUCTURE OF ANTERIOR PORTION OF NECK / Unknown 09/21/2024 Marshafritz Monique SEED CORN MANAGER PRODUCTION MICROBIOLOGY - GENERAL OR DERABLES Final Result Performing Organization Address City/Special Care Hospital/ZIP Co de Phone Number [address] [place] [address] [facility] [address] [place] [address], [place] [phone] * PAP SMEAR WITH HPV (06/26/2022) 06/26/2022 us Doc [facility] Scanned SCANNING Final Resu lt from Last 3 Months or Most Recently Relevant to Health Maintenance Insurance [facility] Care Teams Plant Packer Relationship Specialty Start Date End Date Marsha Monique NP [address] [place] [address] [place] [address] PCP - General NURSE PRACTITIONER 05/27/23
== END 2024-11-23 15:46 | disposition home or self-care (01) ==
LOC: ANHLAB 15:47
PROVIDERS: PCP Nurse Practitioner; Visit Provider Nurse Practitioner Obstetrics & Gynecology
DX: Z34.90 Encounter for supervision of normal pregnancy, unspecified, unspecified trimester (principal)
CPT/HCPCS: 36415; 82947; 85025

== ENCOUNTER 2024-12-12 22:02 | Outpatient (RCR) | payer OTHER, SELFPAY ==
[2024-12-12 22:41] VITALS: BMI 25.7
== END 2025-03-12 23:59 | disposition home or self-care (01) ==
LOC: ANHOBOP 22:02
PROVIDERS: PCP Nurse Practitioner; Visit Provider Obstetrics & Gynecology
DX: O36.8190 Decreased fetal movements, unspecified trimester, not applicable or unspecified (principal)
CPT/HCPCS: 59025

== ENCOUNTER 2025-01-07 10:52 | Outpatient (CLI) | payer OTHER, SELFPAY ==
[2025-01-07 11:36] LABS: Hematocrit 32.3 % (37.0-47.0); Hemoglobin 10.8 g/dL (12.0-15.0); Mean Corpuscular HGB Conc 33.4 g/dl (32-36); Mean Corpuscular Hemoglobin 31.9 pg (26-34); Mean Corpuscular Volume 95.3 fl (80-100); Mean Platelet Volume 10.3 fl (7.4-10.4); Platelet Count Result 155 k/mm3 (150-375); Red Blood Count 3.39 M/mm3 (4.2-5.4); Red Cell Distribution Width 12.9 % (11.5-14.5); White Blood Count 9.9 K/mm3 (4.5-10.0)
--- OUTSIDE RECORDS SUMMARY | 2025-01-07 11:48 | XMS_ITS | Clinical Summary ---
Author Organization [facility] Address [address] [place] [address] Care Team Providers Care Plasma Processor Name Role Phone Marsha Monique NP Primary Care Provider [phone] Allergies No known active allergies Medications No known medications Immunizations Name Administration Dates Next Due Dtap [...] Comments Blood Pressure 102/62 09/21/2024 12:31 PM TISSUE REWINDER Pulse 95 09/21/2024 12:31 PM TISSUE REWINDER Temperature 36.3 C (97.4 F) 09/21/2024 12:31 PM TISSUE REWINDER Respiratory Rate 16 09/21/2024 12:31 PM TISSUE REWINDER Oxygen Saturation 98% 09/21/2024 12:31 PM TISSUE REWINDER Inhaled Oxygen Concentration - - Weight 59.9 kg (132 lb) 09/21/2024 12:31 PM TISSUE REWINDER Height 163.8 cm (5' 4.5 ) 09/21/2024 12:31 PM CS T Body Mass Index 22.31 09/21/2024 12:31 PM TISSUE REWINDER Plan of Treatment Health Maintenance Due Date Last Done Comments Hepatitis C 2013 Annual Physical 05/27/2024 05/27/2023 COVID-19 Vaccine ( season) 2024 12/24/2021, 11/25/2021 PHQ-2 (Physician [place]) 10/07/2024 09/21/2024 Cervical Cancer Screening Pap Smear (Age 21 to 29) Every 3 Years 06/26/2025 06/26/2022 Cervical Cancer Screening 06/26/2025 DTaP, Tdap and Td Vaccines (8 - Td or Tdap) 08/07/2031 08/07/2021, 03/07/2010, 05/20/2001, Additional history exists Hepatitis B Vaccines Completed 02/26/1996, 1995, 1995 Meningococcal Vaccine Aged Out 03/07/2010 No opal vlad eligible based on patient's age to complete this topic HPV Vaccines Completed 09/08/2010, 080 11/2009, 03/07/2010 Meningococcal B Vaccine Aged Out [...] Procedure Name Priority Date/Time Associated Diagnosis Comments OUTSIDE CYTOPATH CERV/VAG IN TERPRET (PAP) 06/26/2022 from Last 3 Months or Most Recently Relevant to Health Maintenance Results * PAP SMEAR WITH HPV (06/26/2022) 06/26/2022 us Doc Med [facility] Scanned SCANNING Final Resu lt from Last 3 Months or Most Recently Relevant to Health Maintenance Insurance [facility] Care Teams Plasma Processor Relationship Specialty Start Date End Date Marsha Monique NP [address] [place] [address] PCP - General NURSE PRACTITIONER 05/27/23
--- OUTSIDE RECORDS SUMMARY | 2025-01-07 11:48 | XMS_ITS | Encounter Summary ---
Author Organization [employer] Address [address] [place] [address] Care Team Providers Care Sample Hand Name Role Phone Zeyad Huertas MD Primary Care Provider [phone] Encounter Details Date Type Department Care Team (Late st Contact Info) Description 01/05/2025 External Device Data STL ABSTRACTION Provider, Abstract NO ADDRESS ON FILE Social History Tobacco Use Types Packs/Day Years Used Date Smoking Tobacco: Never Assessed Comments Unknown Sex and Gender Information Value Date Recorded Sex Assigned at Not on file Legal Sex Female 12:52 PM CDT Gender Identity Not on file Sexual Orientation Not on file documented as of this encounter Plan of Treatment Not on file documented as of this encounter Visit Diagnoses Not on filedocumented in this encounter Care Teams Sample Hand Relationship Specialty Start Date End Date Zeyad Huertas MD [address] [place] [address] PCP - General Family Practice 03/27/21 documented as of this encounter
--- OUTSIDE RECORDS SUMMARY | 2025-01-07 11:48 | XMS_ITS | Clinical Summary ---
Author Organization [facility] [address] Address [address] [place] [phone] Care Team Providers Care Polishing Wheel Setter Name Role Phone Unknown, Notinfile Primary Care [...] 03/07/2010, 05/20/2001, Additional history exists Hepatitis B Screening Completed 02/26/1996 , 1995, 1995 HPV Vaccines Completed 09/08/2010, 11/2009, 03/07/2010 Pneumococcal vaccine <65 Aged Out No longer eligible based on patient's age to complete this topic Insurance [facility] CHOICE PLUS [facility] CHO[facility] PLUS Care Teams Polishing Wheel Setter Relationship Specialty Start Date End Date Unknown, Notinfile PCP - General 05/09/23
--- OUTSIDE RECORDS SUMMARY | 2025-01-07 11:48 | XMS_ITS | Clinical Summary ---
Author Organization [facility] Address [address] [place] [address] Phone Care Team Providers Care Slasher Name Role Phone Zeyad Huertas MD Primary Care Provider [phone] Encounters Date Type Department Care Team Description 01/05/2025 External Device Data STL ABSTRACTION Provider, Abstract 12/21/2024 1:26 PM CDT - 12/21/2024 11:59 PM CDT Hospital Encounter [facility] [address] [place] [phone] Roe Guerrero MD Discharge Disposition: Home or Self Care 12/12/2024 External Device Data STL ABSTRACTION Provider, Abstract 12/11/2024 External Device Data [facility] ABSTRACTION Provider, Abstract 12/09/2024 External Device Data [facility] ABSTRACTION Provider, Abstract 11/25/2024 External Device Data [facility] ABSTRACTION Provider, Abstract 11/09/2024 3:45 PM OUTBOUND SALES AGENT - 11/09/2024 11:59 PM OUTBOUND SALES AGENT Hospital Encounter [facility] [address] [place] [phone] Kourtney Salomon MD Discharge Disposition: Home or Self Care 11/04/2024 External Device Data STL ABSTRACTION Provider, Abstract 10/29/2024 External Device Data STL ABSTRACTION Provider, Abstract 10/19/2024 1:52 PM OUTBOUND SALES AGENT - 10/19/2024 11:59 PM OUTBOUND SALES AGENT Hospital Encounter [facility] [address] [place] [phone] Kourtney Salomon MD Discharge Disposition: Home or [...] Last Done Comments CERVICAL CANCER SCREENING 2016 HPV/Cotest (21-29) 2016 PAP SMEAR 2016 PAP SMEAR 2016 INFLUENZA VACCINE (#1) 2024 COVID-19 Vaccine (2023-2 5 season) 2024 12/24/2021, 11/25/2021 DTAP/TDAP/TD VACCINES (3 - T d or Tdap) 08/07/2031 08/07/2021, 03/07/2010, 05/20/2001, Additional history exists HEPATITIS B VACCINES Completed 02/26/1996, 1995, 1995 HPV VACCINES Completed 09/08/2010, 11/2009, 03/07/2010 Procedures Procedure Name Priority Date/Time Associated Diagnosis Comments US OB FOLLOW UP PER FETUS Routine 12/21/2024 1:57 PM CDT Uterine size date discrepancy US OB FOLLOW UP PER FETUS Routine 11/09/2024 4:22 PM OUTBOUND SALES AGENT screening for malformation using ultrasonics Cervical shortening affecting in second trimester US OB LTD 1 OR MORE FETUS + TV Routine 10/19/2024 2:14 PM OUTBOUND SALES AGENT screening for malformation using ultrasonics Cervical shortening affecting in second trimester from Last 3 Months Results * US OB FOLLOW UP PER FETUS (12/21/2024 1:57 PM CDT) Only the most recent of2 resultswithin the time period is included. Anatomical Region Laterality Modality Pelvis Ultrasound 12/21/2024 1:33 PM CDT Narrative 12/21/2024 2:01 PM CDT STL FOLLOW UP ----- Pat. Name: DINAH RODRIGUEZ Study Date: 12/21/2024 1:33pm Pat. NO: [id number] Referring MD: ROE GUERRERO MD Site: [place] Mechanic: Trena Rose RDMS : 1995 Age: 29 ----- INDICATION ----- Screening Follow-Up CODING ----- Diagnoses Z3A.31: Weeks of gestation Z36.2: Encounter for other screening follow-up Procedures 98844: Ultrasound, uterus, real time with image documentation, follow up, transabdominal approach per fetus HISTORY ----- OB History 1 METHOD ----- Transabdominal ultrasound examination ----- Walter . Number of fetuses: 1 DATING ----- Cycle: regular cycle GA by prior assessment 31 w + 6 d TERESA by prior assessment: 02/16/2025 Ultrasound examination on: 12/21/2024 GA by U/S based upon: AC, BPD, EFW, Femur, HC GA by U/S 31 w + 1 d TERESA by U/S: 02/21/2025 Method of dating: Restore dating from previous exam Assigned: based on stated TERESA, selected on 09/28/2024 Assigned GA 31 w + 6 d Assigned TERESA: 02/16/2025 BIOMETRY ----- BPD 77.6 mm 31w 1d 20% Hadlock OFD 102.2 mm 33w 1d 80% Sarwat HC 288.8 mm 31w 5d 14% Hadlock AC 273.1 mm 31w 3d 34% Hadlock Femur 59.0 mm 30w 5d 13% Hadlock HC / AC 1.06 49% Nicolaides Weight Calculation: EFW 1,723 g 30w 6d 22% Hadlock EFW (lb,oz) 3 lb 13 oz EFW by Hadlock ([id number]) Head / Face / Neck Biometry: Refrigeration Engineering Teacher 5.7 mm Extremities / Bony Struc Biometry: FL / BPD 0.76 FL / HC 0.20 FL / AC 0.22 GENERAL EVALUATION ----- Cardiac activity present. FHR 132 bpm. movements: present. Presentation: breech Placenta: Placental site: posterior, fundal Umbilical cord: Cord vessels: 3 vessel cord. Insertion site: placental insertion: normal Amniotic fluid: Amount of AF: normal amount. MVP 6.4 cm. MARLA 16.9 cm. Q1 4.1 cm, Q2 6.4 cm, Q3 4.4 cm, Q4 2.1 cm ANATOMY ----- The following structures appear normal: Head / Neck Cranium. Lateral ventricles. Choroid plexus. Midline falx. Cavum septi pellucidi. Heart / Thorax Diaphragm. Abdomen Stomach. Kidneys. Bladder. GROWTH OVERVIEW ----- Exam date GA BPD (mm) HC (mm) AC (mm) FL (mm) HL (mm) EFW (g) 09/28/2024 19w 6d 44.5 33% 168.1 24% 154.1 69% 31.8 44% 29.3 43% 336 62% 11/09/2024 25w 6d 65.1 56% 237.6 24% 213.6 41% 46.4 23% 845 34% 12/21/2024 31w 6d 77.6 20% 288.8 14% 273.1 34% 59.0 13% 1,723 22% COMMENT ----- Patient's name and date of were verified by the row boss prior to the exam IMPRESSION ----- Walter @ 31w 6d referred to check growth. - The biometry is consistent with dates with the EFW at the 22% percentile. - Amniotic fluid indices are within normal limits. - Limited anatomy is unremarkable. Further ultrasounds may be scheduled as clinically indicated. Thank you for allowing us to participate in the care of this patient. Procedure Note Kourtney Salomon MD - 12/21/2024 STL FOLLOW UP ----- Pat. Name:Divine RODRIGUEZ Date:12/21/2024 1:33pm Pat. NO: [id number] MD:ROE GUERRERO MD [facility] Memorialographer:Trena Rose RDMS :1995Age:29 ----- INDICATION ----- Screening Follow-Up CODING ----- Diagnoses Z3A.31: Weeks of gestation Z36.2: Encounter for other screeningfollow-up Procedures 13522: Ultrasound, uterus, real time withimage documentation, follow up, transabdominal approach per fetus HISTORY ----- OB History 1 METHOD ----- Transabdominal ultrasound examination ----- Walter . Number of fetuses: 1 DATING ----- Cycle:regular cycle GA by prior [id number] w + 6 d TERESA by prior assessment:02/16/2025 Ultrasound examination on:12/21/2024 GA by U/S based upon:AC, BPD, EFW, Femur, HC GA by U/S31 w + 1 d TERESA by U/S:02/21/2025 Method of dating:Restore dating from previous exam Assigned:based on stated TERESA, selected on 09/28/2024 Assigned GA31 w + 6 d Assigned TERESA:02/16/2025 BIOMETRY ----- BPD 77.6 mm 31w 1d 20%Hadlock OFD 102.2 mm 33w 1d 80%Sarwat HC 288.8 mm 31w 5d 14%Hadlock AC 273.1 mm 31w 3d 34%Hadlock Femur 59.0 mm 30w 5d 13%Hadlock HC / AC 1.06 49%Nicolaides Weight Calculation: EFW 1,723 g 30w 6d22% Hadlock EFW (lb,oz) 3 lb 13 oz EFW by Hadlock ([id number]) Head / Face / Neck Biometry: Refrigeration Engineering Teacher 5.7mm Extremities / Bony Struc Biometry: FL / BPD 0.76 FL / HC 0.20 FL / AC 0.22 GENERAL EVALUATION ----- Cardiac activity present. FHR 132 bpm. movements: present.Presentation: breech Placenta: Placental site: posterior, fundal Umbilical cord: Cord vessels: 3 vessel cord. Insertion site: placentalinsertion: normal Amniotic fluid: Amount of AF: normal amount. MVP 6.4 cm. MARLA 16.9 cm. Q14.1 cm, Q2 6.4 cm, Q3 4.4 cm, Q4 2.1 cm ANATOMY ----- The following structures appear normal: Head / Neck Cranium. Lateral ventricles. Choroid plexus.Midline falx. Cavum septi pellucidi. Heart / Thorax Diaphragm. Abdomen Stomach. Kidneys. Bladder. GROWTH OVERVIEW ----- Exam date GA BPD (mm) HC (mm) AC (mm) FL(mm) HL (mm) EFW (g) 09/28/2024 19w 6d 44.5 33% 168.1 24% 154.1 69%31.8 44% 29.3 43% 336 62% 11/09/2024 25w 6d 65.1 56% 237.6 24% 213.6 41%46.4 23% 845 34% 12/21/2024 31w 6d 77.6 20% 288.8 14% 273.1 34%59.0 13% 1,723 22% COMMENT ----- Patient's name and date of were verified by the row boss prior tothe exam IMPRESSION ----- Walter @ 31w 6d referred to check growth. - The biometry is consistent with dates with the EFW at the 22%percentile. - Amniotic fluid indices are within normal limits. - Limited anatomy is unremarkable. Further ultrasounds may be scheduled as clinically indicated. Thank you for allowing us to participate in the care of this patient. us Roe Guerrero MD US ORDERABLES Final Result * US OB LTD 1 OR MORE FETUS + TV (10/19/2024 2:14 PM OUTBOUND SALES AGENT) Anatomical Region Laterality Modality Pelvis Ultrasound 10/19/2024 1:54 PM OUTBOUND SALES AGENT Narrative 10/19/2024 2:29 PM OUTBOUND SALES AGENT STL LIMITED ----- Pat. Name: DINAH RODRIGUEZ Study Date: 10/19/2024 1:54pm Pat. NO: [id number] Referring MD: ROE GUERRERO MD Site: [place] Mechanic: Araceli Douglas RDMS : 1995 Age: 29 ----- INDICATION ----- Cervical Shortening, Confirmed Per TA on prior scan CODING ----- Diagnoses Z3A.22: Weeks of gestation O26.872: Cervical shortening Procedures 26431: Ultrasound, uterus, real time with image documentation, limited one or more fetuses 18173: Ultrasound, uterus, real time with image documentation [...] and date of were verified by the row boss prior to the exam. was present for the transvaginal ultrasound and served as a stoker installer. IMPRESSION ----- DINAH is here for follow up ultrasound to [...] Mckeon MD - 10/19/2024 STL LIMITED ----- Ana. Name:Divine RODRIGUEZ Date:10/19/2024 1:54pm Pat. NO: [id number] :ROE GUERRERO MD Site:[facility] Memorialographer:Araceli Douglas RDMS :1995Age:29 ----- INDICATION ----- Cervical Shortening, Confirmed Per TA on priorscan CODING ----- Diagnoses Z3A.22: Weeks of gestation O26.872: Cervical shortening Procedures 20737: Ultrasound, uterus, real time withimage documentation, limited one or more fetuses 57647: Ultrasound, uterus, real time withimage documentation HISTORY ----- OB History 1 METHOD ----- Transabdominal and transvaginal ultrasound examination ----- Walter . Number of fetuses: 1 DATING ----- Cycle:regular cycle GA by prior [id number] w + 6 d TERESA by prior [...] and date of were verified by the row boss prior tothe exam. 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 IMPRESSION ----- DINAH is here for follow up ultrasound to [...] Kourtney Salomon MD US ORDERABLES Final Result from Last 3 Months Insurance [employer] [id number] Member Subscriber Plan / Payer (Ef fective 2024-Present) Name:Dinah Rodriguez Relation to Subscriber:Self Name:Dinah Rodriguez Payer ID:[id number] (NAIC) Type:O Address: [facility] [id number] [address] Care Teams Slasher Relationship Specialty Start Date End Date Zeyad Huertas MD [address] [place] [address] PCP - General Family Practice 03/27/21
--- OUTSIDE RECORDS SUMMARY | 2025-01-07 11:48 | XMS_ITS | Referral Summary ---
Author Organization [facility] [address] Address [address] [place] [phone] Care Team Providers Care Industrial Locomotive Operator Name Role Phone Unknown, Notinfile Primary Care [...] Plan of Treatment Not on file Insurance [facility] CHOICE PLUS [place] [id number] [facility] CHOICE PLUS Member Subscriber Plan / Payer (Ef fective 2022-Present) Name:Ale Nairah Relation to Subscriber:Spouse Name:BERNARD NAIR Date of :1995 (Home) Address: [address] [address] Payer ID:[id number] (NAIC) Type:[facility] HMO/PPO Address: [place] [id number] Care Teams Industrial Locomotive Operator Relationship Specialty Start Date End Date Unknown, Notinfile PCP - General 05/09/23
[2025-01-07 12:35] LABS: Syphilis IgG/IgM Antibody Negative (Negative)
[2025-01-07 12:48] LABS: HIV 1/2 Ab P24 Ag Result Negative (Negative)
== END 2025-01-07 10:53 | disposition home or self-care (01) ==
LOC: ANHLAB 10:54
PROVIDERS: PCP Nurse Practitioner; Visit Provider Obstetrics & Gynecology
DX: Z34.90 Encounter for supervision of normal pregnancy, unspecified, unspecified trimester (principal)
CPT/HCPCS: 36415; 85027; 86593; 86703; G0432

== ENCOUNTER 2025-01-29 16:47 | Emergency (ER) | payer OTHER, SELFPAY ==
--- OUTSIDE RECORDS SUMMARY | 2025-01-29 16:50 | XMS_ITS | Referral Summary ---
Author Organization [facility] [address] Address [address] [place] [phone] Care Team Providers Care City Engineer Name Role Phone Unknown, Notinfile Primary Care [...] Plan of Treatment Not on file Insurance [facility] CHOICE PLUS [place] [id number] [facility] CHOICE PLUS Member Subscriber Plan / Payer (Ef fective 2022-Present) Name:Ale Nairah Relation to Subscriber:Spouse Name:BERNARD NAIR Date of :1995 (Home) Address: [address] [address] Payer ID:[id number] (NAIC) Type:[facility] HMO/PPO Address: [place] [id number] Care Teams City Engineer Relationship Specialty Start Date End Date Unknown, Notinfile PCP - General 05/09/23
--- OUTSIDE RECORDS SUMMARY | 2025-01-29 16:50 | XMS_ITS | Clinical Summary ---
Author Organization [facility] Address [address] [place] [id number] Care Team Providers Care Supervisor Poultry Hatchery Name Role Phone Marsha Monique NP Primary Care Provider [phone] Allergies No known active allergies Medications No known medications Immunizations Immunization Administration Dates Next Due Dtap (Generic) 05/20/2001, [...] Comments Blood Pressure 102/62 09/21/2024 12:31 PM DECORATIVE ENGRAVER APPRENTICE Pulse 95 09/21/2024 12:31 PM DECORATIVE ENGRAVER APPRENTICE Temperature 36.3 C (97.4 F) 09/21/2024 12:31 PM DECORATIVE ENGRAVER APPRENTICE Respiratory Rate 16 09/21/2024 12:31 PM DECORATIVE ENGRAVER APPRENTICE Oxygen Saturation 98% 09/21/2024 12:31 PM DECORATIVE ENGRAVER APPRENTICE Inhaled Oxygen Concentration - - Weight 59.9 kg (132 lb) 09/21/2024 12:31 PM DECORATIVE ENGRAVER APPRENTICE Height 163.8 cm (5' 4.5 ) 09/21/2024 12:31 PM CS T Body Mass Index 22.31 09/21/2024 12:31 PM DECORATIVE ENGRAVER APPRENTICE Plan of Treatment Health Maintenance Due Date Last Done Comments Hepatitis C 2013 Annual Physical 05/27/2024 05/27/2023 COVID-19 Vaccine ( season) 2024 12/24/2021, 11/25/2021 PHQ-2 (Physician [place]) 10/07/2024 09/21/2024 Cervical Cancer Screening Pap Smear [...] 5 Years) and At-Risk Patients (6 to 49 Years) Aged Out No longer eligible based [...] Most Recently Relevant to Health Maintenance Insurance [facility] Care Teams Supervisor Poultry Hatchery Relationship Specialty Start Date End Date Marsha Monique NP [address] [place] [phone] PCP - General NURSE PRACTITIONER 05/27/23
--- OUTSIDE RECORDS SUMMARY | 2025-01-29 16:50 | XMS_ITS | Clinical Summary ---
Author Organization [facility] Address [address] [place] [phone] Phone Care Team Providers Care Art Critic Name Role Phone Zeyad Huertas MD Primary Care Provider [phone] Encounters Date Type Department Care Team Description 01/05/2025 External Device Data ST[facility] ABSTRACTION Provider, Abstract 12/21/2024 1:26 PM CDT - 12/21/2024 11:59 PM CDT Hospital Encounter [facility] [address] [place] [phone] Lauren Guerrero MD Discharge Disposition: Home or Self Care 12/12/2024 External Device Data STL ABSTRACTION Provider, Abstract 12/11/2024 External Device Data [facility] ABSTRACTION Provider, Abstract 12/09/2024 External Device Data [facility] ABSTRACTION Provider, Abstract 11/25/2024 External Device Data [facility] ABSTRACTION Provider, Abstract 11/09/2024 3:45 PM STAFF RESEARCH ASSOCIATE - 11/09/2024 11:59 PM STAFF RESEARCH ASSOCIATE Hospital Encounter [facility] [address] [place] [phone] Kourtney Salomon MD Discharge Disposition: Home or Self Care 11/04/2024 External Device Data ST[facility] ABSTRACTION Provider, Abstract from Last 3 Months Social History Tobacco [...] 2016 HPV/Cotest (21-29) 2016 PAP SMEAR 2016 INFLUENZA VACCINE (#1) [...] UP PER FETUS Routine 11/09/2024 4:22 PM STAFF RESEARCH ASSOCIATE screening for malformation using ultrasonics Cervical shortening affecting in second trimester from Last 3 Months Results * US OB FOLLOW UP PER FETUS (12/21/2024 1:57 PM CDT) Only the most recent of2 resultswithin the time period is included. Anatomical Region Laterality Modality Pelvis Ultrasound 12/21/2024 1:33 PM CDT Narrative 12/21/2024 2:01 PM CDT STL FOLLOW UP ----- Pat. Name: TUSHAR RODRIGUEZ Study Date: 12/21/2024 1:33pm Pat. NO: [id number] Referring MD: LAUREN GUERRERO MD Site: [place] Vocational Trainer: Trena Rose RDMS : 1995 Age: 29 ----- INDICATION ----- Screening Follow-Up CODING ----- Diagnoses Z3A.31: Weeks of gestation Z36.2: Encounter for other screening follow-up Procedures 19442: Ultrasound, uterus, real time with image documentation, [...] 3 lb 13 oz EFW by Hadlock ([id number]) Head / Face / Neck Biometry: Java Analyst 5.7 mm Extremities / Bony Struc Biometry: [...] and date of were verified by the validation architect prior to the exam IMPRESSION ----- Walter [...] Pat. Name:Divine RODRIGUEZ Date:12/21/2024 1:33pm Pat. NO: [id number] MD:LAUREN GUERRERO [facility] RDMS :1995Age:29 ----- INDICATION ----- Screening Follow-Up CODING ----- Diagnoses Z3A.31: Weeks of gestation Z36.2: Encounter for other screeningfollow-up Procedures 26149: Ultrasound, uterus, real time withimage documentation, follow up, transabdominal approach per fetus HISTORY ----- OB History 1 METHOD ----- Transabdominal ultrasound examination ----- Walter . Number of fetuses: 1 DATING ----- Cycle:regular cycle GA by prior [id number] w + 6 d TERESA by prior [...] 3 lb 13 oz EFW by Hadlock ([id number]) Head / Face / Neck Biometry: Java Analyst 5.7mm Extremities / Bony Struc Biometry: FL [...] and date of were verified by the validation architect prior tothe exam IMPRESSION ----- Walter @ 31w 6d referred to check growth. - The biometry is consistent with dates with the EFW at the 22%percentile. - Amniotic fluid indices are within normal limits. - Limited anatomy is unremarkable. Further ultrasounds may be scheduled as clinically indicated. Thank you for allowing us to participate in the care of this patient. us Lauren Guerrero MD US ORDERABLES Final Result from Last 3 Months Insurance Member Subscriber Plan / Payer (Ef fective 2024-Present) Name:Tushar Rodriguez Relation to Subscriber:Self Name:Tushar Rodriguez Payer ID:[id number] (NAIC) Type:HMO Address: [facility] [id number] Care Teams Art Critic Relationship Specialty Start Date End Date Zeyad Huertas MD [address] [place] [address] PCP - General Family Practice 03/27/21
--- OUTSIDE RECORDS SUMMARY | 2025-01-29 16:50 | XMS_ITS | Continuity of Care Document ---
Author Name [facility] Organization [facility] Care Team Providers Care Adjunct Instructor In Economics Name Role Phone [facility] Unavailable Unavailable Problems Combined list of problems from Department of Defense and Veterans Affairs facilities. It does not include entries that were removed or entered in error. Problem Status Onset Date Problem Type Date of Resolution Comme nts Source Acute serous otitis media, right ear Active Condition DoD Allergies, Adverse Reactions, Alerts Combined list of allergies from Department of Defense and Veterans Affairs facilities. It does not include entries that were removed or entered in error. Substance Category Reaction Severity Reaction type Status Date Reported Comments Source No Known Allergies Drug allergy (disorder) active 04/19/2016 Solange ANDINO Immunizations Combined list of available immunizations from the Department of Defense and Veterans Affairs facilities. Immunization Series Date Given Administered By Site Reaction Lot Number CVX Code Drug Washer Off Status Comments Source hepatitis A vaccine, adult dosage 1 2017 JUAN JOSE STRICKLAND 4H37Y [address] [place] [address] (SK) complet ed hepatitis A vaccine, adult dosage DoD Encounters Combined list of: 1) Encounters from Department of Veterans Affairs facilities going backup to the last 18 months, not all [place] inpatient encounters are included; 2) Encounters from the Department of Defense facilities going backup to 280 months. Location Location Details Encounter Type Encounter Number Reason For Visit Attending Provider ADM Date DC Date Status Disposition Source [facility] OUTPATIENT [id number] Notes Entered by: SUNSHINE TATUM X 30 Mar 2016 1026 ------- ------- ------- ------- -- Feeling weak/he gunjan/ JAIRON Santizo 03/30 Released w/o Limitations [facility] OUTPATIENT [id number] Notes Entered by: SUNSHINE TATUM X 19 Apr 2016 0517 ------- ------- ------- ------- -- Pain in right Eye GABINO CRENSHAW 04/19 Released w/o Limitations [place] [facility] OUTPATIENT [id number] Notes Entered by: Bhupinder GEORGE 17 Mar 2018 1937 ------- ------- ------- ------- -- CONSTIP JANE ALBERTS 03/17 Released w/o Limitations [facility] [place] [facility] OUTPATIENT [id number] SOURAV DE LUNA V 04/12 Released w/o Limitations [place] RUKHSANA Bernardo [facility]) Procedures Combined list of: 1) Procedures from Department of Veterans Affairs facilities going back up to thelast 18 months, not all [place] non-surgical procedures are included; 2) All procedures from the Department of Defense facilities. Procedure Procedure Type Code Date Perfomer Comments Aldo e ADMINISTRATION OF PATIENT-FOCUSED HEALTH RISK ASSESSMENT INSTRUMENT (EG, HEALTH HAZARD APPRAISAL) WITH SCORING AND DOCUMENTATION, PER STANDARDIZED INSTRUMENT 04/12/2018 [facility] Social History Combined list of available smoking, tobacco, and other social history from Department of Defense and Veterans Affairs facilities. Social History Type Response Date Comment Sourc e This section is an empty social history section. DoD
--- OUTSIDE RECORDS SUMMARY | 2025-01-29 16:50 | XMS_ITS | Clinical Summary ---
Author Organization [facility] [address] Address [address] [place] [phone] Care Team Providers Care Chili Pepper Grinder Name Role Phone Unknown, Notinfile Primary [...] patient's age to complete this topic Insurance [facility] Care Teams Chili Pepper Grinder Relationship Specialty Start Date End Date Unknown, Notinfile PCP - General 05/09/23
--- OUTSIDE RECORDS SUMMARY | 2025-01-29 16:53 | XMS_ITS | Continuity of Care Document ---
Author Name [facility] Organization [facility] Care Team Providers Care Distribution Dispatcher Name Role Phone [facility] Unavailable Unavailable Problems [...] Site Reaction Lot Number CVX Code Drug Military Logistics Specialist Status Comments Source hepatitis A vaccine, adult dosage 1 2017 JUAN JOSE STRICKLAND 4H37Y [address] [place] [address] (SK) complet ed hepatitis A vaccine, adult dosage DoD Encounters Combined list of: 1) Encounters from Department of Veterans Affairs facilities going backup to the last 18 months, not all [place] inpatient encounters are included; 2) Encounters from the Department of Defense facilities going backup to 280 months. Location Location Details Encounter Type Encounter Number Reason For Visit Attending Provider ADM Date DC Date Status Disposition Source [facility] OUTPATIENT [id number] Notes Entered by: SUNSHINE TATUM X 30 Mar 2016 1026 ------- ------- ------- ------- -- Feeling weak/he gunjan/ JAIRON Santizo 03/30 Released w/o Limitations [facility] OUTPATIENT [id number] Notes Entered by: SUNSHINE TATUM X 19 Apr 2016 0517 ------- ------- ------- ------- -- Pain in right Eye GABINO CRENSHAW 04/19 Released w/o Limitations [place] [facility] OUTPATIENT [id number] Notes Entered by: Bhupinder GEORGE 17 Mar 2018 1937 ------- ------- ------- ------- -- CONSTIP JANE ALBERTS 03/17 Released w/o Limitations [facility] [place] [facility] OUTPATIENT [id number] SOURAV DE LUNA V 04/12 Released w/o Limitations [place] RUKHSANA Bernardo [facility] [...] SCORING AND DOCUMENTATION, PER STANDARDIZED INSTRUMENT 04/12/2018 [facility] Social History Combined list of available smoking, tobacco, and other social history from Department of Defense and Veterans Affairs facilities. Social History Type Response Date Comment Sourc e This section is an empty social history section. DoD
[2025-01-29 16:57] VITALS: BP 106/51; PULSE 81; RESP 20; TEMP 36.1; O2SAT 99
--- NOTE | 2025-01-29 18:12 | ED_ITS ---
HPI - Wound/Laceration General Chief Complaint: Wound/Laceration Stated Complaint: cat bite Time Seen by Provider: 01/29/25 17:00 Source: patient and RN notes reviewed Mode of arrival: ambulatory Limitations: no limitations History of Present Illness HPI narrative: 29-year-old female presents Express Care complaining of a cat bite to her right lower leg. Patient said yesterday she is scared her cat and her cat bit her on the right jones. Since then patient has had increased redness and swelling around the bite. Patient says her cat is a indoor cat and has no concern for rabies. Patient's tetanus is up-to-date. Patient is currently 9 months and is supposed to have a scheduled in 10 days due to a breech presentation. . Patient denies any complications. Patient denies any fevers, chills, body aches, nausea or any other concerns. Patient's OBGYN is Dr. Bell. Related Data Home Medications ?Medication ?Instructions ?Recorded ?Confirmed ?Last Taken ?Type docosahexaenoic acid 200 mg mg PO 08/19/24 01/28/25 01/19/25 History capsule ( DHA) ferrous sulfate 325 mg (65 mg 325 mg PO DAILY 01/20/25 01/28/25 01/19/25 History iron) tablet Allergies Allergy/AdvReac Type Severity Reaction Status Date / Time No Known Allergies Allergy Verified 01/29/25 17:00 Review of Systems Review of Systems: CONSTITUTIONAL: Denies fever, chills, or sweats. EYES: Denies visual changes, redness, or discharge. ENT: Denies rhinorrhea, congestion, sore throat, or otalgia. CARDIOVASCULAR: Denies chest pain, palpitations, or edema. RESPIRATORY: Denies cough or dyspnea. GASTROINTESTINAL: Denies abdominal pain, nausea, vomiting, or diarrhea. GENITOURINARY: Denies dysuria or hematuria. SKIN: Denies rash or itching. Positive for bite MUSCULOSKELETAL: Denies back pain, joint pain, or myalgia. NEUROLOGIC: Denies headache, numbness, or weakness. PSYCHIATRIC: Denies anxiety or depression. All other systems reviewed are negative, except as documented in HPI. [facility] Surgical History Surgical History History of gynecological procedure Paragard IUD inserted 10/10/21 History of tonsillectomy [place] teeth removed Family History Family History Grandparent Family history of elevated blood lipids Diabetes mellitus Aneurysm Family history of coronary artery disease Hypertension Cerebrovascular accident Mother Family history of elevated blood lipids Hypertension Father No problems noted. Grandparent Diabetes mellitus Hypertension Cerebrovascular accident Mother Hypertension Grandparent Diabetes mellitus Cerebrovascular accident Mother Hypertension Social History Social History Smoking status: Never smoker Tobacco type: e-cigarettes/vaping Second hand tobacco smoke exposure: No Alcohol intake: former Substance use: never Lack of Transportation: No Lack of Food: Never True Current Housing: I Have Housing Concerned About Future Housing: No Difficulty Paying Gas/Electric Bills: No Difficulty Paying for Meds: No Currently Unemployed: No Difficulty w/ Childcare or Family Care: No Gender identity (if verbalized by the patient): Female Sexual Orientation (if Verbalized by the Patient): Straight or Heterosexual Spiritual care concerns: No Comments At the time of my signature, I reviewed and agree with the nursing past medical, surgical, social, and family history. There is no relevant family history pertinent to the patient complaint. Exam Narrative: GENERAL: This is a well-nourished, well-developed adult, in no apparent distress. They are non ill-appearing, nontoxic appearing. Patient is . HEAD: normocephalic, atraumatic. EYES: Sclera clear/white. Vision is grossly intact. Extraocular movement intact. EARS: External ears normal, Hearing grossly intact. NOSE: External nose normal THROAT: Mucous membranes moist NECK: Normal range of motion CARDIOVASCULAR: Regular rate and rhythm RESPIRATORY: Respiratory rate normal, respiratory effort nonlabored, no respira tory distress SKIN: Right lower leg: Scabbed Puncture wound to the lower leg below the knee. There is surrounding cellulitis and ecchymosis around the puncture site. No exudate. No induration or area of fluctuance. Surrounding cellulitis and ecchymosis measures approximately 8 cm x 6 cm. Wound is tender to palpation. No streaking. NEURO: awake, alert, and oriented to person, place and time. There were no obvious focal neurologic abnormalities. EXTREMITIES: No joint tenderness, effusion, or edema noted. Course Course Emergency Course: Spoke with Dr. Santana, the on-call OBGYN for Dr. Bell's office about antibiotic treatment for this patient. Dr. Santana is okay with Augmentin to treat the cat wound. Patient is aware of diagnosis, understands and agrees to treatment plan. Anticipatory guidance given. Patient agrees to follow-up as directed and is aware of reasons to seek care at the emergency department. Portions of this record may have been created with voice recognition software Level of Care: Express Care Visit Vital Signs Vital signs: Vital Signs Temperature 97.0 F L 01/29/25 16:57 Pulse Rate 81 01/29/25 16:57 Respiratory Rate 20 01/29/25 16:57 Blood Pressure 106/51 L 01/29/25 16:57 Pulse Oximetry 99 01/29/25 16:57 Oxygen Delivery Room Air 01/29/25 16:57 Temperature 97.0 F L 01/29/25 16:57 Pulse Rate 81 01/29/25 16:57 Respiratory Rate 20 01/29/25 16:57 Blood Pressure 106/51 L 01/29/25 16:57 Pulse Oximetry 99 01/29/25 16:57 Oxygen Delivery Room Air 01/29/25 16:57 Reviewed MDM - Wound/Laceration MDM Narrative Medical decision making narrative: It appears the cat bite is infected. Patient's tetanus is up today. Patient has no concern for rabies for their. Spoke with Dr. Santana, the on-call OBGYN for Dr. Bell's office about antibiotic treatment for this patient since she is . Dr. Santana is okay with Augmentin to treat the cat wound. Will treat empirically with Augmentin. Discussed physical exam findings. Advised suppo rtive measures and signs/symptoms to go to the ER. Pt is appropriate for outpt treatment and f/u. Differential Diagnosis Differential diagnosis: Likely abscess, abrasion and other (Cellulitis) Critical Care Time Critical Care Time Critical Care Time: No Discharge Plan Discharge Clinical Impression: Cat bite involving extremity Patient Disposition: Home Condition: Stable Instructions: Antibiotic Form, Animal Bite (ED) Additional Instructions: Please take Augmentin as directed. Please take this antibiotic with food. Follow-up with your OB or your primary care provider in 1 week. If the redness gets worse, your wound begins to streak, or you develop fevers please go to the ER immediately. Wash the wound daily with mild soap and water. Avoid dirty water including tub soaks, hot tubs, swimming pools, or lakes until your wound has healed completely. Patient Language: Maldivian Prescriptions: New amoxicillin-pot clavulanate 875-125 mg tablet 1 tablet PO Q12H 7 Days Qty: 14 0RF No Action DHA 200 mg capsule PO ferrous sulfate 325 mg (65 mg iron) tablet 325 mg PO DAILY Follow-up/Referrals: Eneida,MARKIE Woodard [Primary Care Provider] - Time of Disposition: 18:01
== END 2025-01-29 18:07 | disposition home or self-care (01) ==
PROVIDERS: PCP Nurse Practitioner
DX: O26.891 Other specified pregnancy related conditions, first trimester (principal); S81.851A Open bite, right lower leg, initial encounter; Z3A.09 9 weeks gestation of pregnancy; W55.01XA Bitten by cat, initial encounter
CPT/HCPCS: 99213; G0463

== ENCOUNTER 2025-02-08 08:51 | Outpatient (CLI) | payer OTHER, SELFPAY ==
[2025-02-08 09:29] LABS: Basophils Percent Auto 0.3 % (0.2-1.2); Eosinophils Absolute Auto 0.2 K/mm3 (0-0.3); Eosinophils Percent Auto 1.8 % (0-4.4); Hematocrit 33.6 % (37.0-47.0); Hemoglobin 11.3 g/dL (12.0-15.0); Immature Granulocyte Absolute 0.06 K/mm3 (0.00-0.031); Immature Granulocyte Percent A 0.6 % (0-0.5); Lymphocytes Absolute Auto 1.52 K/mm3 (0.9-3.2); Lymphocytes Percent Auto 15.4 % (18.3-44.2); Mean Corpuscular HGB Conc 33.6 g/dl (32-36); Mean Corpuscular Hemoglobin 32.4 pg (26-34); Mean Corpuscular Volume 96.3 fl (80-100); Mean Platelet Volume 9.9 fl (7.4-10.4); Monocytes Absolute Auto 0.8 K/mm3 (0.1-0.6); Monocytes Percent Auto 7.6 % (2.6-8.5); Neutrophils Absolute Auto 7.3 K/mm3 (1.3-6.7); Neutrophils Percent Auto 74.3 % (45.5-73.1); Platelet Count Result 148 k/mm3 (150-375); Red Blood Count 3.49 M/mm3 (4.2-5.4); Red Cell Distribution Width 13.1 % (11.5-14.5); White Blood Count 9.9 K/mm3 (4.5-10.0)
--- OUTSIDE RECORDS SUMMARY | 2025-02-08 09:33 | XMS_ITS | Clinical Summary ---
Author Organization [facility] Address [address] [place] [address] Care Team Providers Care [facility] Representative Name Role Phone Marsha Monique NP Primary Care Provider [phone] Allergies No known active allergies Medications No [...] Comments Blood Pressure 102/62 09/21/2024 12:31 PM CHECK OUT CASHIER Pulse 95 09/21/2024 12:31 PM CHECK OUT CASHIER Temperature 36.3 C (97.4 F) 09/21/2024 12:31 PM CHECK OUT CASHIER Respiratory Rate 16 09/21/2024 12:31 PM CHECK OUT CASHIER Oxygen Saturation 98% 09/21/2024 12:31 PM CHECK OUT CASHIER Inhaled Oxygen Concentration - - Weight 59.9 kg (132 lb) 09/21/2024 12:31 PM CHECK OUT CASHIER Height 163.8 cm (5' 4.5 ) 09/21/2024 12:31 PM CS T Body Mass Index 22.31 09/21/2024 12:31 PM CHECK OUT CASHIER Plan of Treatment Health Maintenance Due Date Last Done Comments Hepatitis C 2013 Annual Physical 05/27/2024 05/27/2023 COVID-19 Vaccine ( season) 2024 12/24/2021, 11/25/2021 PHQ-2 (Physician [place]) 10/07/2024 09/21/2024 Cervical Cancer Screening Pap Smear [...] Most Recently Relevant to Health Maintenance Insurance [facility] Care Teams Medical Center Representative Relationship Specialty Start Date End Date Marsha Monique NP [address] [place] [id number] PCP - General NURSE PRACTITIONER 05/27/23
--- OUTSIDE RECORDS SUMMARY | 2025-02-08 09:33 | XMS_ITS | Referral Summary ---
Author Organization [address] Address [address] [place] [phone] Care Team Providers Care Rehabilitation Engineer Name Role Phone Unknown, Notinfile Primary [...] Plan of Treatment Not on file Insurance [facility] CHOICE PLUS [place] [id number] [facility] CHOICE PLUS Member Subscriber Plan / Payer (Ef fective 2022-Present) Name:Ale Nairah Relation to Subscriber:Spouse Name:BENRARD NAIR Date of :1995 (Home) Address: [address] [place] [address] Payer ID:[id number] (NAIC) Type:[facility] HMO/PPO Address: [place] [id number] Care Teams Rehabilitation Engineer Relationship Specialty Start Date End Date Unknown, Notinfile PCP - General 05/09/23
--- OUTSIDE RECORDS SUMMARY | 2025-02-08 09:33 | XMS_ITS | Clinical Summary ---
Author Organization [facility] [address] Address [address] [place] [phone] Care Team Providers Care Hogshead Packer Name Role Phone Unknown, Notinfile Primary Care [...] patient's age to complete this topic Insurance [facility] CHOICE PLUS [facility] CHOICE PLUS Care Teams Hogshead Packer Relationship Specialty Start Date End Date Unknown, Notinfile PCP - General 05/09/23
--- OUTSIDE RECORDS SUMMARY | 2025-02-08 09:33 | XMS_ITS | Clinical Summary ---
Author Organization [facility] Address [address] [place] [address] Phone Care Team Providers Care Sieve Grader Tender Name Role Phone Zeyad Huertas MD Primary Care Provider [phone] Encounters Date Type Department Care Team Description 01/05/2025 External Device Data STL ABSTRACTION Provider, Abstract 12/21/2024 1:26 PM CDT - 12/21/2024 11:59 PM CDT Hospital Encounter [facility] [address] [place] [address] Lauren Guerrero MD Discharge Disposition: Home or [...] Done Comments CERVICAL CANCER SCREENING 2016 HPV/Cotest (-) 2016 PAP SMEAR 2016 INFLUENZA VACCINE (#1) [...] 1:57 PM CDT Uterine size date discrepancy from Last 3 Months Results * US OB FOLLOW UP PER FETUS (12/21/2024 1:57 PM CDT) Anatomical Region Laterality Modality Pelvis Ultrasound 12/21/2024 1:33 PM CDT Narrative 12/21/2024 2:01 PM CDT STL FOLLOW UP ----- Pat. Name: TUSHAR RODRIGUEZ Study Date: 12/21/2024 1:33pm Pat. NO: [id number] Referring MD: LAUREN GUERRERO MD Site: [place] [employer] Wheel Operator: Trena Rose RDMS : 1995 Age: 29 ----- INDICATION ----- Screening Follow-Up CODING ----- Diagnoses Z3A.31: Weeks of gestation Z36.2: Encounter for other screening follow-up Procedures [id number]: Ultrasound, uterus, real time with image documentation, [...] 3 lb 13 oz EFW by Hadlock ([id number]) Head / Face / Neck Biometry: Identity Management Developer 5.7 mm Extremities / Bony Struc Biometry: [...] and date of were verified by the biometrician prior to the exam IMPRESSION ----- Walter [...] Pat. Name:Divine RODRIGUEZ Date:12/21/2024 1:33pm Pat. NO: [id number] MD:LAUREN GUERRERO [facility] RD[facility] :1995Age:29 ----- INDICATION ----- Screening Follow-Up CODING ----- Diagnoses Z3A.31: Weeks of gestation Z36.2: Encounter for other screeningfollow-up Procedures [id number]: Ultrasound, uterus, real time withimage documentation, follow up, transabdominal approach per fetus HISTORY ----- OB History 1 METHOD ----- Transabdominal ultrasound examination ----- Walter . Number of fetuses: 1 DATING ----- Cycle:regular cycle GA by prior [id number] w + 6 d TERESA by prior [...] 3 lb 13 oz EFW by Hadlock ([id number]) Head / Face / Neck Biometry: Identity Management Developer 5.7mm Extremities / Bony Struc Biometry: FL [...] and date of were verified by the biometrician prior tothe exam IMPRESSION ----- Walter @ [...] of this patient. us Lauren Guerrero MD ORDERABLES Final Result from Last 3 Months Insurance Member Subscriber Plan / Payer (Ef fective 2024-Present) Name:Tushar Rodriguez Relation to Subscriber:Self Name:Tushar Rodriguez Payer ID:[id number] (NAIC) Type:O Address: [facility] [id number] [address] Care Teams Sieve Grader Tender Relationship Specialty Start Date End Date Zeyad Huertas MD [address] [place] [place] [address] PCP - General Family Practice 03/27/21
--- OUTSIDE RECORDS SUMMARY | 2025-02-08 09:33 | XMS_ITS | Continuity of Care Document ---
Author Name [facility] Organization [facility] Care Team Providers Care Sketch Liner Name Role Phone [facility] Unavailable Unavailable Problems [...] Site Reaction Lot Number CVX Code Drug Newspaper Or Periodical Editor Status Comments Source hepatitis A vaccine, adult dosage 1 2017 JUAN JOSE STRICKLAND 4H37Y [address] [place] [address] (SK) complet ed hepatitis A vaccine, adult dosage DoD Encounters Combined list of: 1) Encounters from Department of Veterans Affairs facilities going backup to the last 18 months, not all [place] inpatient encounters are included; 2) Encounters from the Department of Defense facilities going backup to 280 months. Location Location Details Encounter Type Encounter Number Reason For Visit Attending Provider ADM Date DC Date Status Disposition Source [facility] OUTPATIENT [id number] Notes Entered by: SUNSHINE TATUM X 30 Mar 2016 1026 ------- ------- ------- ------- -- Feeling weak/he gunjan/ JAIRON Santizo 03/30 Released w/o Limitations [facility] OUTPATIENT [id number] Notes Entered by: SUNSHINE TATUM X 19 Apr 2016 0517 ------- ------- ------- ------- -- Pain in right Eye GABINO CRENSHAW 04/19 Released w/o Limitations [place] [facility] OUTPATIENT [id number] Notes Entered by: Bhupinder GEORGE 17 Mar 2018 1937 ------- ------- ------- ------- -- CONSTIP JANE ALBERTS 03/17 Released w/o Limitations [facility] [place] [facility] OUTPATIENT [id number] SOURAV DE LUNA V 04/12 Released w/o Limitations [place] RUKHSANA Bernardo [facility] [...] SCORING AND DOCUMENTATION, PER STANDARDIZED INSTRUMENT 04/12/2018 [facility] Social History Combined list of available smoking, tobacco, and other social history from Department of Defense and Veterans Affairs facilities. Social History Type Response Date Comment Sourc e This section is an empty social history section. DoD
[2025-02-08 10:21] LABS: HIV 1/2 Ab P24 Ag Result Negative (Negative)
[2025-02-08 10:25] LABS: Syphilis IgG/IgM Antibody Negative (Negative)
== END 2025-02-08 08:52 | disposition home or self-care (01) ==
LOC: ANHLAB 09:05
PROVIDERS: PCP Nurse Practitioner; Visit Provider Obstetrics & Gynecology
DX: Z01.812 Encounter for preprocedural laboratory examination (principal)
CPT/HCPCS: 36415; 85025; 86593; 86703; 86850; 86900; 86901; G0432

== ENCOUNTER 2025-02-09 09:57 | Inpatient (IN) | payer OTHER, SELFPAY ==
[2025-02-09] VITALS (49 sets, daily range): BP systolic 90–120; BP diastolic 43–75; PULSE 51–114; RESP 14–20; TEMP 36.5–36.9; O2SAT 96–100; BMI 26.4
--- OUTSIDE RECORDS SUMMARY | 2025-02-09 10:47 | XMS_ITS | Continuity of Care Document ---
Author Name [facility] Organization [facility] Care Team Providers Care Cafeteria Counter Attendant Name Role Phone [facility] Unavailable Unavailable Problems [...] Site Reaction Lot Number CVX Code Drug Bathing Suit Maker Status Comments Source hepatitis A vaccine, adult dosage 1 2017 JUAN JOSE STRICKLAND 4H37Y [address] [place] [address] ([place]) complet ed hepatitis A vaccine, adult dosage DoD Encounters Combined list of: 1) Encounters from Department of Veterans Affairs facilities going backup to the last 18 months, not all [place] inpatient encounters are included; 2) Encounters from the Department of Defense facilities going backup to 280 months. Location Location Details Encounter Type Encounter Number Reason For Visit Attending Provider ADM Date DC Date Status Disposition Source [facility] OUTPATIENT [id number] Notes Entered by: SUNSHINE TATUM X 30 Mar 2016 1026 ------- ------- ------- ------- -- Feeling weak/he gunjan/ JAIRON Santizo 03/30 Released w/o Limitations [facility] OUTPATIENT [id number] Notes Entered by: SUNSHINE TATUM X 19 Apr 2016 0517 ------- ------- ------- ------- -- Pain in right Eye GABINO CRENSHAW 04/19 Released w/o Limitations [place] [facility] OUTPATIENT [id number] Notes Entered by: Bhupinder GEORGE 17 Mar 2018 1937 ------- ------- ------- ------- -- CONSTIP JANE ALBERTS 03/17 Released w/o Limitations [facility] [place] [facility] OUTPATIENT [id number] SOURAV DE LUNA V 04/12 Released w/o Limitations [place] RUKHSANA Bernardo [facility] [...] SCORING AND DOCUMENTATION, PER STANDARDIZED INSTRUMENT 04/12/2018 [facility] Social History Combined list of available smoking, tobacco, and other social history from Department of Defense and Veterans Affairs facilities. Social History Type Response Date Comment Sourc e This section is an empty social history section. DoD
--- OUTSIDE RECORDS SUMMARY | 2025-02-09 10:47 | XMS_ITS | Referral Summary ---
Author Organization [address] Address [address] [place] [address] Care Team Providers Care Day Care Director Name Role Phone Unknown, Notinfile Primary Care [...] Plan of Treatment Not on file Insurance [facility] CHOICE PLUS [place] [id number] [facility] CHOICE PLUS Member Subscriber Plan / Payer (Ef fective 2022-Present) Name:Ale Nairah Relation to Subscriber:Spouse Name:BERNARD NAIR Date of :1995 (Home) Address: [address] [place] [address] Payer ID:[id number] (NAIC) Type:[facility] HMO/PPO Address: [place] [id number] Care Teams Day Care Director Relationship Specialty Start Date End Date Unknown, Notinfile PCP - General 05/09/23
--- OUTSIDE RECORDS SUMMARY | 2025-02-09 10:47 | XMS_ITS | Clinical Summary ---
Author Organization [facility] [address] Address [address] [place] [address] Care Team Providers Care Embryology Professor Name Role Phone Unknown, Notinfile Primary Care [...] patient's age to complete this topic Insurance [facility] CHOICE PLUS [facility] HMO/PPO Address: [place] [address] [facility] CHOICE PLUS [facility] HMO/PPO Address: [facility] [address] [place] [address] Care Teams Embryology Professor Relationship Specialty Start Date End Date Unknown, Notinfile PCP - General 05/09/23
--- OUTSIDE RECORDS SUMMARY | 2025-02-09 10:47 | XMS_ITS | Clinical Summary ---
Author Organization [facility] Address [address] [place] [address] Care Team Providers Care Grain Elevator Worker Name Role Phone Marsha Monique NP Primary Care Provider [phone] Allergies No known active allergies Medications No known medications Encounters Date Type Department Care Team Description 01/29/2025 Scan [facility] INFO SRVCS Scanned, Doc Med Group from Last 3 Months Immunizations Immunization Administration Dates Next Due Dtap [...] Comments Blood Pressure 102/62 09/21/2024 12:31 PM EMT DRIVER Pulse 95 09/21/2024 12:31 PM EMT DRIVER Temperature 36.3 C (97.4 F) 09/21/2024 12:31 PM EMT DRIVER Respiratory Rate 16 09/21/2024 12:31 PM EMT DRIVER Oxygen Saturation 98% 09/21/2024 12:31 PM EMT DRIVER Inhaled Oxygen Concentration - - Weight 59.9 kg (132 lb) 09/21/2024 12:31 PM EMT DRIVER Height 163.8 cm (5' 4.5 ) 09/21/2024 12:31 PM CS T Body Mass Index 22.31 09/21/2024 12:31 PM EMT DRIVER Plan of Treatment Health Maintenance Due Date Last Done Comments Hepatitis C 2013 Annual Physical 05/27/2024 05/27/2023 COVID-19 Vaccine ( season) 2024 12/24/2021, 11/25/2021 PHQ-2 (Physician [place]) 10/07/2024 09/21/2024 Cervical Cancer Screening Pap Smear [...] Most Recently Relevant to Health Maintenance Insurance [facility] Care Teams Grain Elevator Worker Relationship Specialty Start Date End Date Marsha Monique NP [address] [place] [address] PCP - General NURSE PRACTITIONER 05/27/23
--- OUTSIDE RECORDS SUMMARY | 2025-02-09 10:47 | XMS_ITS | Clinical Summary ---
Author Organization [facility] Address [address] [place] [address] Phone Care Team Providers Care Surveying Or Spatial Science Technician Name Role Phone Zeyad Huertas MD Primary Care Provider [phone] Encounters Date Type Department Care Team Description 01/05/2025 External Device Data STL ABSTRACTION Provider, Abstract 12/21/2024 1:26 PM CDT - 12/21/2024 11:59 PM CDT Hospital Encounter [facility] M[facility] [address] [place] [address] Lauren Guerrero MD Discharge Disposition: [...] RODRIGUEZ Study Date: 12/21/2024 1:33pm Pat. NO: [id number] Referring MD: LAUREN GUERRERO MD Site: [place] [employer] Frame Builder: Trena Rose RDMS : 1995 Age: 29 ----- INDICATION ----- Screening Follow-Up CODING ----- Diagnoses Z3A.31: Weeks of gestation Z36.2: Encounter for other screening follow-up Procedures [id number]: Ultrasound, uterus, real time with image documentation, [...] 3 lb 13 oz EFW by Hadlock ([id number]) Head / Face / Neck Biometry: Steward/Stewardess Tourist Class 5.7 mm Extremities / Bony Struc Biometry: [...] and date of were verified by the paste worker prior to the exam IMPRESSION ----- Walter [...] Pat. Name:Divine RODRIGUEZ Date:12/21/2024 1:33pm Pat. NO: [id number] MD:LAUREN GUERRERO [facility] RDMS :1995Age:29 ----- INDICATION ----- Screening Follow-Up CODING ----- Diagnoses Z3A.31: Weeks of gestation Z36.2: Encounter for other screeningfollow-up Procedures 63937: Ultrasound, uterus, real time withimage documentation, follow up, transabdominal approach per fetus HISTORY ----- OB History 1 METHOD ----- Transabdominal ultrasound examination ----- Walter . Number of fetuses: 1 DATING ----- Cycle:regular cycle GA by prior [id number] w + 6 d TERESA by prior [...] 3 lb 13 oz EFW by Hadlock ([id number]) Head / Face / Neck Biometry: Steward/Stewardess Tourist Class 5.7mm Extremities / Bony Struc Biometry: FL [...] and date of were verified by the paste worker prior tothe exam IMPRESSION ----- Walter @ [...] Name:Tushar Rodriguez Payer ID:[id number] (NAIC) Type:O Address: [facility] [address] Care Teams Surveying Or Spatial Science Technician Relationship Specialty Start Date End Date Zeyad Huertas MD [address] [place] [address] PCP - General Family Practice 03/27/21
--- OUTSIDE RECORDS SUMMARY | 2025-02-09 10:47 | XMS_ITS | Encounter Summary ---
Author Organization [facility] Address [address] [place] [address] Care Team Providers Care Horticultural Farmworker Name Role Phone Marsha Monique DUCTFIXING PLUMBER Primary Care Provider [phone] Encounter Details Date Type Department Care Team (Latest Contact Info) Description 01/29/2025 Scan [facility] HE[facility] INFO SRVCS Scanned, Doc Med Group Social History Tobacco Use Types Packs/Day Years Used Date Smoking Tobacco: Never Passive Smoke Exposure: Never Smokeless Tobacco: Never Alcohol Use Standard Drinks/Week Comments Yes 3.3 [...] on filedocumented in this encounter Care Teams Horticultural Farmworker Relationship Specialty Start Date End Date Marsha Monique NP [address] [place] [address] PCP - General NURSE PRACTITIONER 05/27/23 documented as of this encounter
[2025-02-09] MEDS: ACETAMINOPHEN 500 MG TABLET 1000 MG PO (10:59)
[2025-02-09] MEDS: LACTATED RINGERS 1,000 ML 999 ML (11:20)
--- NOTE | 2025-02-09 11:22 | P.HP_ITS ---
H&P: HPI History of Present Illness Date/Time: 02/09/25 11:22 Chief Complaint: Elective repeat section persistent breech presentation Narrative: patient is a 29-year-old at 39 weeks with an EDC of 02/16/25 presents for repeat section. She has breech presentation. She had a primary C- section for breech presentation. she opted for repeat section. Her course has been uncomplicated. ultrasound at the bedside today confirmed a persistent breech presentation. Review of Systems Review of Systems: All systems reviewed & are unremarkable except as noted in HPI and below Constitutional: Constitutional: Reports no additional constitutional complaints and Denies headache(s) Eyes: Eyes: Denies spots in vision ENT: Reports system reviewed and no additional complaints, except as documented and Denies headache(s) Cardiovascular: Cardiovascular: Denies chest pain and Denies dyspnea Respiratory: Respiratory: Denies dyspnea Gastrointestinal: Gastrointestinal: Reports no additional gastrointestinal complaints Genitourinary: Genitourinary: Reports amenorrhea Musculoskeletal: Musculoskeletal: Reports no additional musculoskeletal complaints Integumentary/Breasts: Skin/Breast: Denies breast mass and Denies rash Neurologic: Denies headache(s) Psychiatric: Psychiatric: Reports no additional psychiatric complaints PMFSH Surgical History Surgical History History of gynecological procedure Paragard IUD inserted 10/10/21 History of tonsillectomy [place] teeth removed Family History Family History Grandparent Family history of elevated blood lipids Diabetes mellitus Aneurysm Family history of coronary artery disease Hypertension Cerebrovascular accident Mother Family history of elevated blood lipids Hypertension Father No problems noted. Grandparent Diabetes mellitus Hypertension Cerebrovascular accident Mother Hypertension Grandparent Diabetes mellitus Cerebrovascular accident Mother Hypertension Social History Social History Smoking status: Never smoker Tobacco type: e-cigarettes/vaping Second hand tobacco smoke exposure: No Alcohol intake: former Substance use: never Do You Feel Safe in your Home?: Yes Lack of Transportation: No Lack of Food: Never True Current Housing: I Have Housing Concerned About Future Housing: No Difficulty Paying Gas/Electric Bills: No Difficulty Paying for Meds: No Currently Unemployed: No Education: Bachelor's Degree Difficulty w/ Childcare or Family Care: No Gender identity (if verbalized by the patient): Female Sexual Orientation (if Verbalized by the Patient): Straight or Heterosexual Spiritual care concerns: No Meds Home Medications and Allergies Home Medications ?Medication ?Instructions ?Recorded ?Confirmed ?Type docosahexaenoic acid 200 mg mg PO 08/19/24 02/03/25 History capsule ( DHA) ferrous sulfate 325 mg (65 mg 325 mg PO DAILY 01/20/25 02/03/25 History iron) tablet Allergies Allergy/AdvReac Type Severity Reaction Status Date / Time No Known Allergies Allergy Verified 02/03/25 13:11 Vital Signs Vital Signs - 24 hr 02/09/25 10:27 02/09/25 10:32 02/09/25 10:37 Pulse Oximetry 98 99 98 Oxygen Delivery 02/09/25 10:42 Pulse Oximetry Oxygen Delivery Room Air Exam Const: General: no acute distress Eyes: General: appearance normal, both eyes and all related structures Resp: Effort & Inspection: normal respiratory effort Cardio: Rate: regular rate GI: Other: Gravid no fundal tenderness no right upper quadrant pain Skin: General skin exam: no rashes or lesions noted Neuro: Cognition (Neuro): normal cognition Extrem: General: normal to inspection Psych: Mental Status: mental status grossly normal Assessment and Plan Assessment and plan (1) Delivery by elective section: Code(s): O82 - Encounter for delivery without indication Status: Acute Assessment and Plan: She has been counseled regarding risks benefits of repeat section risks trial of labor with breech presentation wound which was not recommended. She agrees to repeat section. (2) Breech presentation: Code(s): O32.1XX0 - Maternal care for breech presentation, not applicable or unspecified Status: Acute
--- NOTE | 2025-02-09 11:30 | WPDHPUPDATE1 ---
History and Physical Update Update Date/Time: 02/09/25 11:30 History and Physical has been reviewed, including an updated exam of the patient. There are NO changes in the patient's condition. Risks, benefits, and alternatives have been discussed and questions answered. Patient agrees to proceed with procedure.
[2025-02-09] MEDS: ceFAZolin 2 GM/D5W 50 ML 2 GM/50 ML BAG IVPB (11:37)
[2025-02-09] MEDS: FAMOTIDINE 20 MG/2 ML VIAL IV PUSH (11:38)
[2025-02-09] MEDS: ONDANSETRON INJ 4 MG/2 ML VIAL IV PUSH ×2 (11:38→21:31)
[2025-02-09] MEDS: LACTATED RINGERS 1,000 ML 125 ML IV CONT (11:38)
--- NOTE | 2025-02-09 12:01 | P.PNAN_ITS ---
Anes - Initial Pre Proc Eval Procedure: Operation Date: 02/09/25 12:00 Proposed Procedures p Repeat Section - Roe Bell MD Date/Time: 02/09/25 12:01 Surgeon: Roe Bell MD Pre Op Diagnosis: C Section Patient Data Age: 29 Gender: F Height: 1.63 m Weight: 70 kg Last Vital Signs Pulse 84 02/09/25 12:00 BP 116/70 02/09/25 12:00 Pulse Ox 98 02/09/25 10:37 O2 Del Method Room Air 02/09/25 10:42 Allergies Allergy/AdvReac Type Severity Reaction Status Date / Time No Known Allergies Allergy Verified 02/03/25 13:11 Home Medications ?Medication ?Instructions ?Recorded ?Confirmed ?Type docosahexaenoic acid 200 mg mg PO 08/19/24 02/03/25 History capsule ( DHA) ferrous sulfate 325 mg (65 mg 325 mg PO DAILY 01/20/25 02/09/25 History iron) tablet Patient hx anesthesia problems: none Family hx anesthesia problems: none Results Review: All pre-operative results and documents have been reviewed as part of the pre- operative evaluation. [facility] Surgical History Surgical History History of gynecological procedure Paragard IUD inserted 10/10/21 History of tonsillectomy [place] teeth removed Family History Family History Grandparent Family history of elevated blood lipids Diabetes mellitus Aneurysm Family history of coronary artery disease Hypertension Cerebrovascular accident Mother Family history of elevated blood lipids Hypertension Father No problems noted. Grandparent Diabetes mellitus Hypertension Cerebrovascular accident Mother Hypertension Grandparent Diabetes mellitus Cerebrovascular accident Mother Hypertension Social History Social History Smoking status: Never smoker Tobacco type: e-cigarettes/vaping Second hand tobacco smoke exposure: No Alcohol intake: former Substance use: never Do You Feel Safe in your Home?: Yes Lack of Transportation: No Lack of Food: Never True Current Housing: I Have Housing Concerned About Future Housing: No Difficulty Paying Gas/Electric Bills: No Difficulty Paying for Meds: No Currently Unemployed: No Education: Bachelor's Degree Difficulty w/ Childcare or Family Care: No Gender identity (if verbalized by the patient): Female Sexual Orientation (if Verbalized by the Patient): Straight or Heterosexual Spiritual care concerns: No Anes - Eval Final PreProcedure Day of Procedure 02/09/25 12:01 Patient weight: normal Lungs: normal air movement Airway: Mallampati scale class II Neurological: alert and oriented Last oral intake: >/= 8 hours ASA classification: II Emergent: no Anesthetic plan: proceed Anesthesia type and monitoring: regional spinal and standard monitoring Results Review: All pre-operative results and documents have been reviewed as part of the pre- operative evaluation. Healthy overall, plts 148. Informed Consent: The patient's anesthetic plan and its attendant risks and benefits were discussed with the patient/family/POA. Questions were solicited and answers provided to the satisfaction of the patient/family/POA.
--- NOTE | 2025-02-09 13:35 | W.PM.OBCSD ---
OB - Delivery Note Procedure Delivery date: 02/10/25 Pre-op diagnosis: Breech Presentation and Previous Delivery Post-op Diagnosis: Same Delivery monitor: None Procedure Performed: Repeat Surgeon: Roe Bell MD Anesthesia type: Spinal Description of Procedure/Findings: Female infant, normal fallopian tubes and ovaries. Infant in breech presentation, loose nuchal cord. After informed consent, risks and benefits of the procedure was discussed with the patient. The patient was taken to the operating room where she was placed in the dorsal lithotomy position with leftward tilt. After the prior placed epidural anesthesia was found to be adequate, she was then prepped and draped in the usual sterile fashion. A Pfannenstiel skin incision was made with a scalpel and carried through to the underlying layer of fascia. The fascia was then nicked in the midline, extending bilaterally. The fascia was dissected off the rectus muscles bluntly and sharply, superiorly and inferiorly. The rectus muscles were in the midline, and peritoneum was identified and entered bluntly. The pelvic organs were visualized. The bladder blade was then inserted. The vesicouterine peritoneum was identified and entered sharply with Metzenbaum scissors and extended bilaterally and then the bladder flap was created digitally. The low transverse uterine incision was then made with the scalpel and extended with bilateral index fingers in a crescent-shaped fashion. The amniotic cavity entered. The fetus was in footling breech presentation and both feet were gently grasped and delivered, the legs and then then the arms were delivered, the head was delivered in flexed position. Loose nuchal cord manually reduced. The nose and mouth suctioned. The cord was clamped twice and cut. The infant was then handed off to the awaiting pediatric staff. The placenta was then delivered manually. The uterine cavity was sponge curetted. The uterus was then exteriorized. The uterine incision was then closed with 0 vicryl in a running locked fashion. The second layer was closed with interrupted figure of eight stitches. The posterior cul de sac was cleared of debris. The uterus was then returned to the abdomen. Bilateral gutters were cleared off all clots and debris. The uterine incision was noted to be hemostatic. Interceed placed on uterine incision and vertically on front of uterus. The muscle bellies were inspected and noted to be hemostatic. The subfascial layer was noted to be hemostatic, and the fascia was closed with 0 Vicryl in a running fashion. The subcutaneous layer was then closed with 3-0 Vicryl in a subcutaneous fashion. The skin was closed with 4.0 vicryl on a kief needle. Skin dermabond applied at incision. Dressing placed. All instruments, needle, and lap counts were correct x3. The patient was taken to the recovery room in stable condition. Drains: No Packing: No Pathology: None sent Complications: No immediate complications Condition: Stable Disposition: Floor [place] Baby Date of : 02/09/25 Gestational Age by Date: 39 Infant gender: Female Weight (pounds): 7 Weight (ounces): 1 presentation: breech (footling) Placenta delivery description: Manual Removal Cord Vessel Description: 3 Vessels, Nuchal Cord and Loose score one minute: 8 score five minutes: 9
[2025-02-09] MEDS: OXYTOCIN 30 UNITS/NS 500 ML 30 UNITS/500 ML BAG 125 UNITS IV CONT (15:09)
--- NOTE | 2025-02-09 16:40 | OBPPTRN ---
Patient transferred to post room #286 via stretcher. Support person present. Oriented to unit, room, information board, rooming in, admission packet and security measures. Patient verbalizes understanding.
[2025-02-09] MEDS: ACETAMINOPHEN 325 MG TABLET 650 MG PO ×2 (16:54→23:00)
[2025-02-09] MEDS: KETOROLAC 15 MG/ML VIAL (*BKC) IV PUSH ×2 (16:54→23:00)
[2025-02-09] MEDS: SIMETHICONE 80 MG TAB.CHEW PO (16:54)
[2025-02-09] MEDS: DEXTROSE 5%/0.45% SOD CHL 1,000 ML 125 ML IV CONT (21:32)
[2025-02-10 04:00] VITALS: BP 99/50; PULSE 63; RESP 18; TEMP 36.9; O2SAT 99
[2025-02-10] MEDS: ACETAMINOPHEN 325 MG TABLET 650 MG PO ×4 (05:11→23:45)
[2025-02-10] MEDS: KETOROLAC 15 MG/ML VIAL (*BKC) IV PUSH ×2 (05:13→11:16)
[2025-02-10 05:19] LABS: Basophils Percent Auto 0.1 % (0.2-1.2); Eosinophils Percent Auto 0.3 % (0-4.4); Hematocrit 26.4 % (37.0-47.0); Hemoglobin 8.8 g/dL (12.0-15.0); Immature Granulocyte Absolute 0.08 K/mm3 (0.00-0.031); Immature Granulocyte Percent A 0.5 % (0-0.5); Lymphocytes Absolute Auto 1.47 K/mm3 (0.9-3.2); Lymphocytes Percent Auto 9.4 % (18.3-44.2); Mean Corpuscular HGB Conc 33.3 g/dl (32-36); Mean Corpuscular Hemoglobin 32.4 pg (26-34); Mean Corpuscular Volume 97.1 fl (80-100); Mean Platelet Volume 10.6 fl (7.4-10.4); Monocytes Absolute Auto 1.2 K/mm3 (0.1-0.6); Monocytes Percent Auto 7.5 % (2.6-8.5); Neutrophils Absolute Auto 12.9 K/mm3 (1.3-6.7); Neutrophils Percent Auto 82.2 % (45.5-73.1); Platelet Count Result 135 k/mm3 (150-375); Red Blood Count 2.72 M/mm3 (4.2-5.4); White Blood Count 15.7 K/mm3 (4.5-10.0)
[2025-02-10 07:20] VITALS: BP 88/48; PULSE 67; RESP 16; TEMP 36.9; O2SAT 97
[2025-02-10] MEDS: DOCUSATE SODIUM 100 MG CAPSULE PO ×2 (08:30→17:31)
[2025-02-10] MEDS: POLYSACCHARIDE IRON COMPLEX 150 MG CAPSULE PO ×2 (09:08→17:32)
[2025-02-10] MEDS: MULTIVIT/MIN/PREN/FOL AC/IRON TABLET 1 TAB PO (09:08)
[2025-02-10] MEDS: SIMETHICONE 80 MG TAB.CHEW PO ×3 (09:09→17:31)
--- NOTE | 2025-02-10 09:40 | PC.NURSE ---
Introductions were made, then consulted with patient to assess needs related to . Discussed with mother her?plans to feed?her and the?experience so far. She is having some latch on tenderness that dissipates and feels that baby's latch is optimal. Reviewed anticipatory guidance on nipple pain/soreness. Encouraged patient to call out for a latch check today. Resources provided for inpatient and outpatient services with the feeding sheet, mom/baby guide and name written on the communication board. Mother voiced understanding of information and will call if there is a request for assistance. Reported to the Primary RN.
[2025-02-10 11:20] VITALS: BP 91/51; PULSE 65; RESP 18; TEMP 36.8; O2SAT 98
--- NOTE | 2025-02-10 12:15 | PC.NURSE ---
Patient called out for assistance. She had attempted several times without success. She states that baby has been very sleepy. Visitor is holding baby in a swaddle when I entered the room. We moved baby to the bassinet and undressed her. She woke easily and was placed in a cradle hold on the left breast. Mom was able to latch her independently. She complains of initial tenderness with latch that gets better as baby suckles. Baby was able to open wide and get an optimal latch. Mom noted that baby did not have this much areola in her mouth at previous feeds, so we reviewed signs of a deep latch and how to wait for baby to open her mouth very wide before bringing her to the breast. Mom was receptive to the education provided. Baby continued to suckle off and on with some stimulation from mom. RN updated.
--- NOTE | 2025-02-10 17:30 | PC.NURSE ---
Patient called out because she is and baby's latch is very painful. We latched again and baby does a good job opening wide and taking in a large amount of breast. Mom has significant pain and flanging baby's lower lip out does not help ease the pain. We switched baby to football hold to see if the pain is less. Mom says it feels the same. Baby does tend to slip to the nipple after the initial suckling burst. Mom was shown how to hold baby closer to the breast, ensuring she maintains the deep latch throughout the feeding. Baby needs to have her nose and chin close to the breast and mom is encouraged to pull down on her chin to ensure the lower lip is not rolled in. Mom is using lanolin and hydrogel pads were provided for use in between feedings. Mom is encouraged to call for assistance with feeding as needed. RN updated.
[2025-02-10] MEDS: IBUPROFEN 600 MG TABLET PO ×2 (17:31→23:45)
[2025-02-10 20:01] VITALS: BP 99/62; PULSE 78; RESP 18; TEMP 36.7; O2SAT 96
--- NOTE | 2025-02-10 20:17 | WPDANLDPN2 ---
Anes-Prog Note L&D Date/Time: 02/10/25 20:17 Comfortable throughout: section Neuraxial method: spinal Epidural/Spinal procedure site: clean & non-tender Neuro status: Neuro function grossly intact. Cardiovascular status: normal Respiratory status: normal Airway patency: baseline Mental status: baseline Post-Op hydration status: normal Vital Signs: Last Vital Signs Temp 36.7 C 02/10/25 20:01 Pulse 78 02/10/25 20:01 Resp 18 02/10/25 20:01 BP 99/62 L 02/10/25 20:01 Pulse Ox 96 02/10/25 20:01 O2 Del Method Room Air 02/10/25 08:00 Pain score (VAS): 10/16 I/O: Intake & Output 02/10/25 02/10/25 02/10/25 07:59 15:59 23:59 Output Total 1900 Balance -1900 Post-procedural complaints: none Patient feedback: Patient satisfied with anesthetic care.
--- NOTE | 2025-02-10 20:17 | WPDANLDNPN2 ---
Anes-Prog Note L&D-Neuraxial Date/Time: 02/10/25 20:17 Neuraxial medications: intrathecal PF morphine Opiod-related complaints: none Patient feedback: Patient satisfied with post-operative pain management.
[2025-02-11] MEDS: HYDROcodone/acetaminophen (*CRX) 5-325 MG TABLET 1 TAB PO (00:02)
[2025-02-11] MEDS: ACETAMINOPHEN 325 MG TABLET 650 MG PO ×2 (05:25→11:25)
[2025-02-11] MEDS: IBUPROFEN 600 MG TABLET PO ×2 (05:25→11:25)
--- NOTE | 2025-02-11 07:13 | P.PNOB_ITS ---
OB - PN: Subj Subjective Date/time seen: 02/11/25 07:13 Patient comments: no complaints, pain well controlled, tolerating diet and flatus present baby status: doing well and nursing well OB - PN: Obj Data Labs 02/10/25 04:08 OB - PN A/P Assessment and Plan (1) Delivery by section: Status: Acute Assessment and Plan: POD1. Doing well. Routine post section care. Time Spent With Patient Time: Total time spent is greater than 50% in coordination of care (as documented) at patient's floor/unit and/or counseling patient: Exam 2 Const: General: comfortable and no acute distress Resp: Effort & Inspection: normal respiratory effort GI: Other: fundus below umbilicus, dressing dry intact Psych: Mental Status: mental status grossly normal Affect: normal affect
[2025-02-11 07:55] VITALS: BP 102/60; PULSE 72; RESP 18; TEMP 36.6; O2SAT 100
[2025-02-11] MEDS: SIMETHICONE 80 MG TAB.CHEW PO ×2 (08:24→11:25)
[2025-02-11] MEDS: MULTIVIT/MIN/PREN/FOL AC/IRON TABLET 1 TAB PO (08:24)
[2025-02-11] MEDS: DOCUSATE SODIUM 100 MG CAPSULE PO (08:24)
[2025-02-11] MEDS: POLYSACCHARIDE IRON COMPLEX 150 MG CAPSULE PO (08:24)
--- NOTE | 2025-02-11 11:46 | PC.NURSE ---
0813 Introductions were made, then consulted with patient to assess needs related to . Discussed with mother her?plans to feed?her infant and the?experience so far. Per mother last night with latching did not go so well and she started pumping and bottle feeding. She does have her own breast pump at home. She thinks that she may still put baby to breast but is mostly thinking she will pump and bottle feed. Will put in the combo feeding plan for baby. Mother to call out when she is ready and CLC to measure her nipples and provide handouts regarding pumping and milk storage. Infant has had appropriate feedings in the last 24 hours meets the outcomes for weight, output, blood sugar and jaundice at this time. Reinforced understanding of milk production, transition of milk, signs of adequate intake, transition of stool, prevention/relief of engorgement, plugged ducts, mastitis, responsive watching for feeding cues, the different methods of stimulating to breastfeed 1-3 hours after the start of the last feeding, community resources, and when to call a provider using the resource of the feeding sheet along with the mom and baby guide. Mother voiced understanding of the information shared, is confident to continue effectively feed her at home, when to call for assistance. Resources provided for inpatient and outpatient services with the feeding sheet, mom/baby guide and name written on the communication board. Reported to the Primary RN. 1130 Mother called out and she is ready for measuring of her nipples, both measure at 19mm, so she will be using a size 24 flange. Pumping Primer and Milk Storage handouts given. Instructions given on cleaning, care, usage, that there should be no pain, pumping schedule for milk production, collection, and storage of human milk. Patient was assessed for correct placement, flange size, to pump for comfort and nipple stretching/stimulation for adequate milk production every 3 hours (8 times in 24 hours) 1-2 times at night. Parents are encouraged to record the pumping schedule on the feeding sheet.?Mother voiced understanding of the education shared along with mom/baby guide and the pump measurement, flange fit handout for additional resource information. Reported to the Primary RN.
[2025-02-12 11:35] VITALS: BP 114/68; PULSE 80; RESP 20; TEMP 37.3; O2SAT 98
--- NOTE | 2025-02-12 11:45 | PC.NURSE ---
Follow up RN requested consult for patient. Her breasts are very firm and painful but she is only pumping about 15ml per breast at each session. She is using a 24mm flange with her Spectra pump (measured by RN during inpatient stay). Reviewed engorgement of lymph/fluid in the breast that will resolve in 24-48 hours. She may use heat or ice, whichever feels best. She is advised to continue pumping at any feeding that baby doesn't breastfed. The volume she is pumping is WNL and should steadily increase over the next few days. Reviewed appropriate volumes to feed baby (1-2oz). Parents are encouraged to feed responsively and allow baby to determine frequency and duration of . Paced bottle feeding will also allow baby more control. We discussed the importance of continuing to wake baby at night for feedings until she is back at her weight and the remelt sugar boiler can give them anticipatory guidance on night feedings as baby gets older. If mom is experiencing difficulty with getting baby to breastfeed, she can try express or pumping for a let down before latching or feeding a small amount with the bottle and then offering the breast. Patient is encouraged to call with further questions or if she needs to make an outpatient appointment.
--- NOTE | 2025-02-15 19:17 | P.DS_ITS ---
DS: Admitting Diagnosis Discharge Date 02/11/25 Admitting Diagnosis Elective repeat section DS: Discharge Diagnosis Discharge Diagnosis (1) Delivery by section: Status: Acute OB - DS: Summary Hospital Course Hospital Course: She was admitted for planned elective repeat section for persistent breech presentation. She had an uncomplicated section. She and baby did well . She had adequate pain control and was ambulating well, and tolerating regular diet on day 1. She was discharged to home on post op day 2. OB Procedures : Ultrasound OB Procedures Intrapartum: OB Procedures: : None Peripartum Data Infant Delivery Method: Section Procedures: Procedures Operation Date: 02/09/25 12:00 Actual Procedure Side Surgeon p Repeat Section Not Applicable Roe Bell MD complications: none Status at Discharge Functional status at discharge: independent ambulation Time Spent with Patient Time attestation: Total time spent providing and/or coordinating discharge services: Exam Const: General: cooperative Orientation/consciousness: oriented to person, oriented to place and oriented to time HENMT: Face/Nose/Sinus: Normal external nose present Eyes: General: appearance normal, both eyes and all related structures Resp: Effort & Inspection: normal respiratory effort GI: Inspection: normal to inspection Other: incision healing well Skin: General skin exam: normal color Neuro: General: oriented to person, oriented to place and oriented to time Extrem: General: normal to inspection and no calf tenderness Psych: Appearance: grossly normal Mental Status: mental status grossly n ormal Discharge Plan Discharge Attending physician on discharge: Roe Bell Consulting providers: Alcides Talley; Kellen Swanson Discharging Clinician: Roe Bell Anticipated Discharge Date/Time: 02/11/25 10:19 Patient Disposition: Home Activity: may shower and may drive after 2 weeks Diet: regular Discharge Instructions: Education: Mom and Baby Guide Given to: Mother Follow-Up: Call your delivering provider's office for an appointment to be seen in: 1 Week Mom and baby should come to the [facility] for the follow-up appointment. Appointment Date/Time: February 12, 2025 at 11:00 am What to expect at your follow-up visit: Blood Pressure Check Physical Assessment Call [phone] if you are unable to keep your appointment time. BREAST CARE: * Wear a snug supportive bra. * For engorgement discomfort: Breast Feeding: * Apply warm moist washcloths * Express milk as needed to relieve engorgement * Wear loose clothing Bottle Feeding: * May apply ice packs * For sore nipples: * Identify correct latch-on * Apply warm moist washcloths before and after nursing * Air dry nipples after nursing * May apply Lansinoh cream to nipples ABDOMINAL INCISION: * Allow incision to air dry * Do NOT use lotions or powders on your incision * When showering, allow soap and water to run over the incision, but do not wash incision PERINEAL CARE: * Until bleeding stops, use your yue bottle after urinating * Change your pad frequently throughout the day * You may take sitz baths several times a day (fill your bathtub with warm water and soak for 20 minutes.) Do NOT bathe in the water * No tub baths until seen by your physician - You may shower ACTIVITY: * Rest as much as possible. * Do not exercise or lift anything heavier than your baby (such as laundry or other children.) * Avoid stairs or driving as much as possible. * Do not put anything into the vagina. No douching, tampons, or sexual activity until seen by physician. NOTIFY PHYSICIAN IF YOU HAVE ANY QUESTIONS OR IF ANY OF THE FOLLOWING SYMPTOMS OCCUR: * If your incision becomes red, swollen, or more painful than what you have experienced in the hospital. * If your vaginal bleeding becomes foul smelling. * If your vaginal bleeding becomes more heavy than a period or if your bleeding changes from pink to bright red. However, you may pass an occasional walnut- sized clot once or twice for the first week . * If you experience a sharp, shooting pain in your calves. * If you discover a hard, reddened area on your breast or if you experience flu- like symptoms. DIET: * Eat regular, well-balanced meals. * Drink plenty of fluids daily. If , drink to thirst. Continue once daily vitamins. Continue daily iron supplementation. Patient Language: Chinese Stand Alone Forms: General Discharge Information Follow-up/Referrals: Roe Bell MD [Physician] - 1 Week Discharge Medications: New hydrocodone-acetaminophen 5-325 mg Tablet 1 tablet PO Q3H PRN (Reason: Breakthrough Pain Rated 4-6) Qty: 20 0RF Continued DHA 200 mg capsule PO ferrous sulfate 325 mg (65 mg iron) tablet 325 mg PO DAILY Date of admission: 02/09/25 09:57 Primary Care Provider: Eneida,Marsha Fitzgerald Admitting Provider: Roe Bell Attending physician on admission: Roe Bell Condition: Stable
== END 2025-02-11 12:08 | disposition home or self-care (01) | DRG 788 ==
LOC: ANHLDR 10:00 → ANHOB2 16:41
PROVIDERS: Admitting Provider Obstetrics & Gynecology; PCP Nurse Practitioner; Visit Provider Obstetrics & Gynecology
PROC: (CPT 59514; principal; 2025-02-09 12:00)
DX: O34.211 Maternal care for low transverse scar from previous cesarean delivery (principal); Z37.0 Single live birth; Z3A.39 39 weeks gestation of pregnancy; O32.1XX0 Maternal care for breech presentation, not applicable or unspecified
CPT/HCPCS: 36415; 85025; A9270; J0690; J1100; J1885; J2274; J2405; J2590; J7120